=== PATIENT | female | born 1930 | race Caucasian/White ===

== ENCOUNTER 2016-06-23 20:12 | Inpatient (IN) | payer OTHER ==
[~2016-06-23] VITALS: Ht 170.2 cm; Wt 83.1 kg
--- NOTE | ~2016-06-23 | EKG ---
[address] [address] ELECTROCARDIOGRAM REPORT Name: LUIS E KUHN Room #: 310-P ADM IN M.R.#: [id number] Admission: 06/23/16 Attend Phys: Bonilla Sullivan MD Discharge: Date of : 30 Report #: [id number] THIS REPORT FOR: //name// [facility] ED Test Date: 2016-06-23 Test Time: 20:32:45 Pat Name: LUIS E KUHN Department: Room: 310 Gender: F Olap Developer: CHARLEEN : 1930 Requested By: Renetta Manley Order Number: [id number] MD: Shaun Melgar Measurements Intervals [place] Rate: 71 P: 40 VT: 201 QRS: -27 QRSD: 115 T: 56 QT: 431 QTc: 469 Interpretive Statements Sinus rhythm Nonspecific intraventricular conduction delay Borderline low voltage, extremity leads Electronically Signed On 06-27-2016 8:21:25 CDT by Shaun Melgar [email or web address] <ELECTRONICALLY SIGNED> By: Shaun Melgar MD 06/27/16 08 31 31 Shaun Melgar MD /JERROD
--- NOTE | ~2016-06-23 | H ---
[facility] [place] [address] HISTORY AND PHYSICAL Name: LUIS E KUHN Room #: 310-P ADM IN M.R.#: [id number] Admission: 06/23/16 Attend Phys: Bonilla Sulilvan MD Discharge: Date of : 30 Report #: [id number] THIS REPORT FOR: //name// CC: Felix Tolbert MD [facility] Andre Tomas MD DATE OF SERVICE: 06/24/2016 CHIEF COMPLAINT: Abdominal discomfort and bloating. HISTORY OF PRESENT ILLNESS: The patient is an 86-year-old female who presented at my office with complaints of abdominal discomfort as described above. They began approximately 4-5 days prior to this visit and she began taking MiraLax thinking that she was constipation good and she actually had her first bowel movement in that period of time on the date of admission. She denied any fever, chills or sweats. She otherwise felt her normal self. She does note that she has some chronic constipation issues, but only uses her MiraLax on a p.r.n. basis rather than scheduled as recommended. PAST MEDICAL HISTORY: Quite extensive and includes a rheumatoid arthritis, hypertension, left breast cancer, chronic atrial fibrillation, partial thyroidectomy, back surgery. 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 She has had hysterectomy, appendectomy at the same time. Chronic anxiety, hypertension. CURRENT MEDICATIONS: Iron replacement, flecainide, cyclosporine, potassium chloride, hydrochlorothiazide, MiraLax, methotrexate, folic acid, warfarin, levothyroxine, atenolol, amlodipine, irbesartan. ALLERGIES: She is allergic to PENICILLIN. SOCIAL HISTORY: She is to [employer], is a nonsmoker and nondrinker other than occasional social gatherings. FAMILY HISTORY: Noncontributory. REVIEW OF SYSTEMS: She denies any problems with headaches, changes in vision, changes in hearing or difficulty swallowing. She denies any neck pain or back discomfort other than chronic arthritic pains. She notes that there is mild shortness of breath when she takes a deep breath, but she does not have any particular limitations on her activities, otherwise no chest pain. Abdominal pain as described above. She described it as being epigastric and slightly right-sided in the upper quadrant. She has chronic lymphedema in her legs bilaterally and this is unchanged recently. The rest of the 10-point review of [address] [address] HISTORY AND PHYSICAL Name: LUIS E KUHN CAILIN Room #: 310-P [facility] IN ..#: [id number] Admission: 06/23/16 Attend Phys: Bonilla Sullivan MD Discharge: Date of : 30 Report #: [id number] systems was otherwise negative. PHYSICAL EXAMINATION: VITAL SIGNS: In the Emergency Room showed a temperature of 36.7 degrees Celsius with a pulse of 79, blood pressure of 144/83, respirations of 18 and pulse oximetry of 96% on room air. The self-reported weight was 181 pounds. GENERAL: The patient is a very pleasant, moderately overweight, older white female who looks younger than her stated age. HEENT: Extraocular muscles are intact. Oropharynx is moist and pink. No lesions, no exudates. Sinuses are nontender. Hearing is grossly normal bilaterally. NECK: Supple. There is no adenopathy, thyromegaly, JVD, mass or significant bruit. She has good range of motion in her neck, prior back surgery scar is noted. LUNGS: Clear to auscultation bilaterally. CARDIOVASCULAR: Reveals an irregularly irregular, slow rhythm. ABDOMEN: Fairly soft, slightly distended. There is no rebound or guarding despite Slight tenderness in the epigastric and right upper quadrant area. She has soft iliac bruits bilaterally, no pulsatile masses are noted on the abdomen, otherwise. No overt hernias are noted. Prior surgical scar from hysterectomy was noted. Parathyroidectomy scar at the base of her neck is noted. BREASTS: Not performed at the time of admission. EXTREMITIES: Bilateral lower extremity lymphedema, 3+ at least, bilateral total knee replacement scars. Peripheral pulses easily palpated in both feet and both wrists. NEUROLOGIC: No focal deficits of sensation, motor function, deep tendon reflexes. Cranial nerves 2-12 noted on exam today. EKG done in the Emergency Room shows a sinus rhythm despite the clinical exam, elevated at 71 and normal axis without acute ST changes. LABORATORY DATA: Done in the Emergency Room, chemistry shows sodium 134, potassium 4.3, chloride 102, bicarbonate 28, BUN of 12, creatinine 0.7. The anion gap is low at 4. Nonfasting serum glucose is 128. Calcium was 9.3, total bilirubin 0.5, AST of 20, ALT of 17, alkaline phosphatase of 102. Troponin was less than 0.04. The NT-proBNP is 753 and slightly elevated, within normal range at the slab of less than 300 pg/mL. Her total protein is 6.2, albumin of 3.2 and lipase is 115 and normal, protime was 18.8 with an INR of 1.8 on 5 mg warfarin daily. The CBC showed a white count of 9300 with a differential revealing 87% segmented neutrophils, 8% lymphocytes, 1% atypical lymphocytes, 4% monocytes with an ANC of 8100 and 2+ anisocytosis and 2+ macrocytosis noted on the smear with hemoglobin of 11.9 just below the lower limits of normal. Hemogram: Hematocrit of 35.9 and MCV of 95. RDW of 18, the latter being elevated. Platelet count was 252,000. RADIOLOGICAL DATA: The CT scan of the abdomen and pelvis performed at the Emergency Room had the following impression: [facility] [address] [place] [address] HISTORY AND PHYSICAL Name: LUIS E KUHN CAILIN Room #: 310-P ADM IN M.R.#: [id number] Admission: 06/23/16 Attend Phys: Bonilla Sullivan MD Discharge: Date of : 30 Report #: [id number] 1. Various circumferential wall thickening in the right colon causing luminal narrowing and possibly some component of more proximal obstruction. Colon carcinoma should be the diagnosis of exclusion. Recommend endoscopy. Focal colitis is a possibility, but felt to be less likely. 2. Hypodense lesions in the left lobe of the liver, indeterminate appearance, metastatic lesions should be considered. 3. Extensive diverticulitis coli. Urinalysis was reportedly normal. Chest x-ray was reportedly at baseline. ASSESSMENT AND PLAN: 1. Small-bowel obstruction due to mass at the ileocecal junction. It is quite impressive that the patient has developed signs that suggest malignancy given the extensive workup she had in the last year and a half. I have spoken briefly with Dr. Victor M Naik who saw her during that workup and we both feel that her next step is surgical with a surgical consultation with Dr. Andre Espinoza and consider advancing her diet as tolerated when the obstruction clears. IV fluids for hydration for now. 2. Possible liver masses (subcentimeter in size) -- given the diminutive size of these masses, if biopsy needs to be attempted, this may be done intraoperatively. 3. History of left breast cancer without recurrence. We will get a breast exam while she is in the hospital. 4. Chronic atrial fibrillation. She is currently in sinus rhythm with rate control. We will continue anticoagulation, but convert to Lovenox prior to surgery and reverse the Coumadin and then use Lovenox for bridging therapy after surgery. 5. Rheumatoid arthritis. We will need to hold the Methotrexate for now, she is not having much in the way of any active symptoms of rheumatoid arthritis. 6. Hypertension. We will monitor and treat accordingly. 7. Overweight, weight reduction diet and exercise. Though it is a good idea, but we will defer on aggressive weight reduction until after she has recovered from this illness and possibly from surgery. 8. Prior hysterectomy and appendectomy for benign cause. 9. Prior bilateral total knee arthroplasties. 10. Hypothyroidism, status post prior thyroidectomy and parathyroidectomy. 11. Frequent urinary tract infections. 12. Chronic anxiety. 13. Chronic lymphedema in bilateral lower extremities. <ELECTRONICALLY SIGNED> By: Bonilla Sullivan MD 06/27/16 1530 16 4521 Bonilla Sullivan MD /nt
--- NOTE | ~2016-06-23 | S ---
[facility] [place] [address] SURGICAL PATH RPT PROCEDURE Name: MADIHA DAN WARNER Room #: 310-P ADM IN M.R.#: [id number] Admission: 06/23/16 Date of : 30 Discharge: Report #: [id number] Path Case #: [id number] PATHOLOGY REPORT COLLECTION DATE: 06/27/2016 RECEIVED DATE: 06/28/2016 SUBMITTING PHYS: Dr. 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 (SEE COMMENT) COMMENT: The case is co-reviewed with Dr. Krysten Hoyt. Please refer to the right hemicolectomy specimen for additional information and microsatellite instability testing ([id number]). (CLW:rodrigo; d/t: 06/29/2016) PATHOLOGIST: Sarah Mondragon M.D. REPORT ELECTRONICALLY SIGNED BY: Sarah Mondragon M.D. DATE/TIME: 06/29/2016 13:46 * * * * * * * * * * * * GROSS PATHOLOGY: Received in formalin labeled "Madiha Dan, BX of hepatic flexure," are more than 10 segments of moon soft tissue measuring 1.3 x 0.6 x 0.2 cm in aggregate dimensions and ranging from less than 0.1 to 0.5 cm in maximum dimension. The specimen is submitted entirely in cassette A1. (KINA; 06/28/2016) CLINICAL HISTORY: Rule out ischemia, malignancy INITIAL CPT CODE(S): A; 74885 Professional services performed by [facility] at [facility] [address] , [place] [address] [facility] [address] [place] [address] SURGICAL PATH RPT PROCEDURE Name: MADIHA DANSA Room #: 310-P ADM IN M.R.#: [id number] Admission: 06/23/16 Date of : 30 Discharge: Report #: [id number] Path Case #: [id number] Technical services performed by [facility] at [address] [place] [address], [facility] [address] [address]. [place] [address] PHONE: [phone] DIRECTOR: Burton Farrar M.D. * * * END OF REPORT * * *
--- NOTE | ~2016-06-23 | 2DMMODE ---
[facility] [place] [address] 2 D/M-MODE ECHOCARDIOGRAM Name: LUIS E KUHN WILLOWBROOK Room #: 310-P ADM IN M.R.#: [id number] Admission: 06/23/16 Attend Phys: Bonilla Sullivan MD Discharge: Date of : 30 Date of Service: 06/25/16 1130 Report #: [id number] THIS REPORT FOR: //name// APPROVED REPORT Study performed: 06/25/2016 09:27:57 EXAM: Comprehensive 2D, Doppler, and color-flow Echocardiogram Patient Location: Bedside Room #: 310 Blood Pressure: 156/61 mmHg HR: 56 bpm Other Information Study Quality: Good Indications Atrial Fibrillation 2D Dimensions RVDd: 34.81 mm LVEF(%): 53.82 (>50%) IVSd: 9.44 (7-11mm) LVOT Diam: 19.03 (18-24mm) LVDd: 57.46 mm PWd: 11.18 (7-11mm) Ascending Ao: 29.10 (22-36mm) LVDs: 41.25 (25-40mm) Aortic Root: 31.09 mm IVC: 16.00 mm Martinez's LVEF: 53.82 % Volumes Left Atrial Volume (Systole) Single Plane 4CH: 39.88 mL Single Plane 2CH: 46.81 mL LA ESV Index: 24.00 mL/m2 Aortic Valve AoV Peak Tom.: 1.40 m/s AO Peak Gr.: 7.79 mmHg LVOT Max P.58 mmHg LVOT Max V: 1.07 m/s ISABELL Vmax: 2.18 cm2 Mitral Valve E/A Ratio: 0.8 MV Decel. Time: 246.69 ms [facility] [place] [place] [address] 2 D/M-MODE ECHOCARDIOGRAM Name: LUIS E KUHN WILLOWBROOK Room #: 310-P [facility] IN ..#: [id number] Admission: 06/23/16 Attend Phys: Bonilla Sullivan MD Discharge: Date of : 30 Date of Service: 06/25/16 1130 Report #: [id number] E Max Tom.: 0.84 m/s MV A Tom.: 1.11 m/s MV PHT: 71.54 ms IVRT: 143.02 ms Pulmonary Valve PV Peak Tom.: 1.07 m/s PV Peak Gr.: 4.57 mmHg Pulmonary Vein P Vein S: 50.1 m/s P Vein A: 28.58 m/s P Vein D: 26.3 m/s P Vein A Dur.: 115.3 msec Tricuspid Valve TR Peak Tom.: 2.27 m/s RAP Estimate: 5.00 mmHg TR Peak Gr.: 20.63 mmHg Left Ventricle Left ventricle is at the upper limits of normal. There is normal LV segmental wall motion. There is normal left ventricular wall thickness. The left ventricular systolic function is normal. The left ventricular ejection fraction is within the normal range. LVEF is 55-60%. Grade I - abnormal relaxation pattern. Right Ventricle The right ventricle is normal size. The right ventricular systolic function is normal. Atria The left atrium size is normal. The right atrium size is normal. Aortic Valve The aortic valve is normal in structure. Aortic valve is calcified. No aortic regurgitation is present. There is no aortic valvular stenosis. Mitral Valve The mitral valve is normal in structure. Mild mitral regurgitation. No evidence of mitral valve stenosis. Tricuspid Valve The tricuspid valve is normal in structure. There is trace tricuspid regurgitation. The right atrial pressure is estimated at 5 mmHg. There is no pulmonary hypertension. The estimated PAP was [address] [address] 2 D/M-MODE ECHOCARDIOGRAM Name: LUIS E KUHN CAILNI Room #: 310-P [facility] IN [facility]#: [id number] Admission: 06/23/16 Attend Phys: Bonilla Sullivan MD Discharge: Date of : 30 Date of Service: 06/25/16 1130 Report #: [id number] Pulmonic Valve The pulmonary valve is normal in structure. There is no pulmonic valvular regurgitation. Great Vessels The aortic root is normal in size. IVC is normal in size and collapses >50% with inspiration. Pericardium There is no pericardial effusion. <Conclusion> Left ventricle is at the upper limits of normal. The left ventricular systolic function is normal. Grade I - abnormal relaxation pattern. The right ventricle is normal size. The left atrium size is normal. There is no aortic valvular stenosis. Mild mitral regurgitation. There is trace tricuspid regurgitation. The right atrial pressure is estimated at 5 mmHg. There is no pulmonary hypertension. The estimated PAP was 26 mmHg. <ELECTRONICALLY SIGNED> By: Jose Metz MD 06/25/16 1130 1130 1130 Jose Metz MD /INF
--- NOTE | ~2016-06-23 | S ---
[facility] [address] [place] [address] SURGICAL PATH RPT PROCEDURE Name: MADIHA DAN Room #: 310-P ADM IN M.R.#: [id number] Admission: 06/23/16 Date of : 30 Discharge: Report #: [id number] Path Case #: [id number] PATHOLOGY REPORT COLLECTION DATE: 06/28/2016 RECEIVED DATE: 06/28/2016 SUBMITTING PHYS: Dr. Andre Espinoza OTHER PHYS: Dr.Mark Sullivan SPECIMEN(S) RECEIVED: A.Right hemicolectomy B.Margin edge of right hemicolectomy C.Liver biopsy * * * * * * * * * * * * FINAL DIAGNOSIS: A. Terminal ileum and large intestine, right hemicolectomy: - INVASIVE MODERATELY DIFFERENTIATED COLONIC ADENOCARCINOMA MEASURING 7.0 CM WITH GROSS EVIDENCE OF PERFORATION AND TUMOR PRESENT WITH CAUTERY. - Mucosal margins of resection showing no evidence of dysplasia or malignancy. - FOUR LYMPH NODES WITH METASTATIC ADENOCARCINOMA OF TWENTY SAMPLED (4/20). - 18 cm of omentum with congestion and chronic inflammation; negative for malignancy. B. Margin edge of right hemicolectomy: - Large intestine and small bowel mucosa with no diagnostic abnormalities. C. Liver, needle core biopsy: - METASTATIC ADENOCARCINOMA, MORPHOLOGICALLY SIMILAR TO THE COLONIC PRIMARY. SYNOPTIC CANCER STAGING REPORT SPECIMEN Specimen: Terminal ileum Cecum Ascending colon Procedure: Right hemicolectomy TUMOR Primary Tumor Site: Hepatic flexure Histologic Type: Adenocarcinoma Histologic Grade: Low-grade (well differentiated to moderately differentiated) Tumor Size: Greatest dimension (cm): 7.0 [facility] [address] [place] [address] SURGICAL PATH RPT PROCEDURE Name: MADIHA DAN RIO NIDO Room #: 310-P [facility] IN [facility]#: [id number] Admission: 06/23/16 Date of : 30 Discharge: Report #: [id number] Path Case #: [id number] Additional Dimension (cm): 5.0 Tumor Deposits: Present Number of Deposits: Specify: 1 Tumor Extent Site(s) of Direct Extent of Tumor: None identified Microscopic Tumor Extension: Tumor is adherent to other organs or structures: intraabdominal; cauterized tumor at mesenteric margin on large intestine Macroscopic Tumor Perforation: Present Accessory Tumor Findings Lymph-Vascular Invasion: Present Small vessel lymph-vascular invasion Perineural Invasion: Present Type of Polyp in Which Invasive Carcinoma Arose: Tubular adenoma MARGINS For Resection Specimens Only Proximal Margin: Uninvolved by invasive carcinoma Distance of Tumor from Margin: Specify (cm): 13 Distal Margin: Uninvolved by invasive carcinoma Distance of Tumor from Margin (required only for rectal tumors): Specify (cm): 9 Circumferential (Radial) Margin: Involved by invasive carcinoma (tumor present 0-1 mm from margin) Mesenteric Margin: Involved by invasive carcinoma (tumor present 0-1 mm from margin) LYMPH NODES Regional Lymph Nodes: Number of Lymph Nodes Examined: Specify number: 20 Number of Lymph Nodes Involved: Specify number: 4 STAGE (PTNM) Primary Tumor (pT): pT4b: Tumor directly invades or is adherent to other organs or structures Regional Lymph Nodes (pN): pN2a: Metastasis in 4 to 6 regional lymph nodes Distant Metastasis (pM): pM1a: Metastasis to single organ or site (e.g., liver, lung, ovary, nonregional lymph node) COMMENT: Obstetrics Scrub Nurse slides (A3, A4, and C1) were co-reviewed by Dr. Sarah Mondragon, who concurs with my diagnosis. Per [facility] Cancer Committee protocol, mismatch repair (MMR) protein immunohistochemical staining was performed. Reason for testing: To evaluate [place] [address] SURGICAL PATH RPT PROCEDURE Name: HATTIEMADIHA RIO NIDO Room #: 310-P [facility] IN M.R.#: [id number] Admission: 06/23/16 Date of : 30 Discharge: Report #: [id number] Path Case #: [id number] mismatch repair proteins. Method: Immunohistochemical staining for the presence or absence of protein expression of one or more of the following MMR protein markers: MLH1, MSH2, MSH6 and PMS2 on block A4. Tumor type: Invasive adenocarcinoma Results: MLH1 - Preserved MSH2 - Preserved MSH6 - Preserved PMS2 - Preserved Mismatch Repair Status: MMR Proficient (MMR-P) Interpretation: (MMR-P) All four MMR proteins are preserved within tumor cells. This suggests the presence of normal DNA mismatch repair function within the tumor and an observable defect in mismatch repair is not identified. The likelihood that this patient has an inherited germline mutation syndrome due to defective mismatch repair is reduced but not totally eliminated. If the patient has a strong personal or family history of HPNCC/Wilson syndrome related cancers (colorectal, endometrial, gastric, ovarian, pancreatic, ureter/renal pelvis, biliary tract, brain, small bowel and [place]-Silvio syndrome), consider MSI testing by PCR methodology. Suggest clinical correlation and follow up. These test results are designed for screening purposes only and are useful tools in identifying cancer patients that are more likely to have Wilson Syndrome related diagnoses. Tests should be interpreted in the context of clinical findings, family history and laboratory data. Abnormal IHC results for MMR protein expression are not considered diagnostic for Wilson Syndrome. (IUV:mgr; d/t: 06/29/16) PATHOLOGIST: Krysten Hoyt M.D. REPORT ELECTRONICALLY SIGNED BY: Krysten Hoyt M.D. DATE/TIME: 06/30/2016 11:19 * * * * * * * * * * * * GROSS PATHOLOGY: A. The specimen is received fresh from the OR labeled with the patient's name, and "right hemicolectomy" consists of a 24.4 cm segment of large intestine with attached 4.0 x 3.0 cm of ileum. The appendix is not obvious. Approximately 9 cm from the distal margin is a perforated area which is inked black. There appears to be a circumferential mass at this focus with significant serosal fat perforation. The perforated area measures 1.0 x 2.0 cm. The specimen is opened to show a 7.0 x 5.0 cm ulcerated circumferential mass approximately 9 cm from the distal margin and 13 cm from the [address] [address] SURGICAL PATH RPT PROCEDURE Name: MADIHA DAN Room #: 310-P ADM IN M.R.#: [id number] Admission: 06/23/16 Date of : 30 Discharge: Report #: [id number] Path Case #: [id number] proximal margin. No additional mass lesions are identified. In addition, to the mesenteric fat, there is 18 x 4 cm of omentum attached. The omentum is serially sectioned and shows no nodules or mass lesions are identified. Sections are submitted as follows: A1 - Proximal and distal margin (claims customer service representative section) A2-A5 - Obstetrics Scrub Nurse sections of the mass A6-A7 - Possible lymph nodes A8- A9 - Lymph nodes surrounding the tumor in the mesenteric fat A10 - Obstetrics Scrub Nurse sections of omentum (IUV/db; 06/28/2016) After initial microscopic examination, the specimen is re-examined. Further sectioning of the mesenteric fat reveals additional possible lymph nodes ranging in size from 0.2 to 0.3 cm in maximum dimensions. The lymph nodes are submitted intact in cassette A11. (CAA; 06/29/2016) B. The specimen is received in formalin labeled "Madiha Dan, margin edge of right hemicolectomy". Received is a circular segment of pink-moon mucosa with a suture present measuring 4.3 x 1.5 x 1.1 cm in greatest dimensions. Further opening of the specimen reveals pink-moon mucosa with normal architectural folds. No distinct nodules or lesions are noted grossly. The specimen is fitted representatively in cassettes B1 and B2. C. Received in formalin labeled "Madiha Dan, liver biopsy," are four distinct needle cores of white-moon to orange red-moon soft tissue ranging from 0.3 to 1.8 cm in length, which are submitted entirely in cassette C1. (CAA; 06/28/2016) CLINICAL HISTORY: Bowel obstruction INITIAL CPT CODE(S): A; 69959, 00783, 90970, 97268, 82321, 92360 B; 90440 C; 69328 Professional services performed by [facility] at [facility] [address] [place] [address] Technical services performed by [facility] at [address] [place] [address]. [facility] [address] [place] [address] SURGICAL PATH RPT PROCEDURE Name: MADIHA DAN CAILIN Room #: 310-P ADM IN M.R.#: [id number] Admission: 06/23/16 Date of : 30 Discharge: Report #: [id number] Path Case #: [id number] PHONE: [phone] DIRECTOR: Burton Farrar M.D. * * * END OF REPORT * * *
--- NOTE | ~2016-06-23 | EKG ---
[place] [address] [facility] [address] [place] [address] ELECTROCARDIOGRAM REPORT Name: LUIS E KUHN Room #: 450-P ADM IN M.R.#: [id number] Admission: 06/23/16 Attend Phys: Bonilla Sullivan MD Discharge: Date of : 30 Report #: [id number] THIS REPORT FOR: //name// [facility] Test Date: 2016-07-01 Test Time: 13:02:59 Pat Name: LUIS E KUHN Department: Room: 450 Gender: F [employer] Supervisor: abelardo : 1930 Requested By: Felix Tolbert Order Number: [id number] MD: Felix Tolbert Measurements Intervals Issue Rate: 136 P: AR: QRS: 35 QRSD: 93 T: 191 QT: 343 QTc: 517 Interpretive Statements Atrial fibrillation Low voltage, extremity leads Repolarization abnormality, prob rate related Prolonged QT interval Compared to ECG 06/23/2016 20:32:45 Atrial fibrillation has replaced sinus rhythm Electronically Signed On 07-02-2016 11:28:09 CDT by Felix Tolbert [email or web address] <ELECTRONICALLY SIGNED> By: Felix Tolbert MD, [facility] 07/02/16 1128 1302 1302 Felix Tolbert MD, [facility] /EPI
--- NOTE | ~2016-06-23 | O ---
[facility] [place] [address] OPERATIVE REPORT Name: LUIS E KUHN Room #: 450-P ADM IN M.R.#: [id number] Admission: 06/23/16 Attend Phys: Bonilla Sullivan MD Discharge: Date of : 30 Report #: [id number] THIS REPORT FOR: //name// CC: Bonilla Sullivan DATE OF SERVICE: 06/28/2016 DATE OF ADMISSION: 06/23/2016. DATE OF OPERATION: 06/28/2016 DATE OF DICTATION: 07/04/2016 PREOPERATIVE DIAGNOSIS: Right ascending colon adenocarcinoma with possible liver metastases. POSTOPERATIVE DIAGNOSIS: Right ascending colon, hepatic flexure adenocarcinoma of the colon with hepatic metastases. OPERATIVE PROCEDURE: Laparoscopic converted to open right hemicolectomy with needle biopsy of the liver (2) also application of Prevena negative wound fresher suction device. SURGEON: Andre Espinoza MD MIS DIRECTOR: Kiley Cruz APRN. INDICATIONS: This 86-year-old lady has presented to her primary care physician with symptoms suggestive of possible partial bowel obstruction. Her symptoms are crampy abdominal pain with some distention. The patient has noted no change in her gastrointestinal function except for the cramping abdominal pain. After admission, the patient has had ongoing bowel preparation. The patient also has been on Coumadin therapy for previous atrial fibrillation, The Coumadin therapy has been stopped and the patient's protime INR has returned to normal over a period of 48 hours. The patient has undergone colonoscopy, which delineated a nearly circumferential partially obstructing lesion in the ascending colon near the hepatic flexure. Biopsies were taken. OPERATIVE PROCEDURE: The patient had a thorough discussion of the procedure, benefits and risks. She gave informed consent to proceed. She had a previous mechanical and antibiotic bowel preparation. She was given Mefoxin IV at the time of operation. After satisfactory induction of general endotracheal anesthesia, the patient's entire abdomen was prepped and draped in the usual sterile procedure with DuraPrep solution. After draping was completed, an appropriate timeout was then performed. A 0.5% plain Naropin was utilized at all trocar sites. Initially, an infraumbilical incision was performed and an [facility] [address] [place] [address] OPERATIVE REPORT Name: LUIS E KUHN COOTER Room #: 450-P ADM IN M.R.#: [id number] Admission: 06/23/16 Attend Phys: Bonilla Sullivan MD Discharge: Date of : 30 Report #: [id number] open cutdown was performed. The Gigi trocar was placed. Pneumoperitoneum was established. The right colon was visualized. This was densely adherent to the inferior aspect of the gallbladder. The liver did not demonstrate any obvious espinoza moon masses visualized by laparoscopy. The left upper quadrant was unremarkable. The identification of the terminal ileum, ileocecal valve was also demonstrated. Some of the small bowel loops were somewhat dilated and distended and an intraoperative decision was made to perform an open procedure and conversion to an open midline laparotomy was then performed. Upon exploration of the abdomen, the firm large mass was palpable just below the hepatic flexure, just proximal to the hepatic flexure. Palpation of the liver demonstrated a 2-3 cm mass in the medial segment of the left lobe of the liver. There was a larger 3 cm mass in the lateral lobe of the left lateral segment of the left lobe. Attention was turned to the medial segment lesion and needle biopsy kit was utilized to perform 2 biopsies of this segment. These fragments were submitted for histologic evaluation. Attention was turned to the region of the ileocecal valve and 8 cm proximal to the ileocecal valve was chosen as a transsection point, the window was made in the mesentery. The EBONY stapling device was utilized to transect the ileum. The peritoneal reflection on the lateral aspect of the cecum was then opened and for along the peritoneal reflection inferior to the hepatic flexure was the firm mass, which was clearly palpable and evident. There was dimpling of the serosal surface; posteriorly the mass had perforated into the tissue behind the colon. This mass was rolled away from the posterior tissue leaving a small 1.5 cm area where there was residual tumor present directly over the right ureter. This area was identified with 4 clips at the 12, 3, 6, and 9 position. There was a small amount of rough residual tumor present. The remainder of the hepatic flexure was mobilized medially. A place in the mesocolon was chosen just to the right side of the middle colic vessels. A window was made in the mesocolon. The colon was transected utilizing the EBONY stapling device. The mesocolon was transected and controlled with the LigaSure device. Larger vessels were stick tied with 3-0 PDS suture. The duodenum was well visualized and maintain in its normal position. The entire specimen was transected and given to the pathologist in a fresh state, evaluation was performed. The ileocolic vessels were transected and ligated with 2-0 PDS sutures as well as the LigaSure device. After the complete resection, the terminal ileum and the colon were approximated. The ileocolotomy anastomosis was performed with a EBONY stapling device. The ileocolotomy was then controlled with Allis clamps and the TA 60 stapling device was utilized to close the ileocolotomy. The mesenteric rent between the small bowel and the mesocolon was then approximated with running 2-0 PDS suture. Irrigation was utilized with water. Evacuation of all irrigating contents was accomplished. There was no spillage of bowel contents performing of the anastomosis. Hemostasis was complete. Attention was turned to the biopsy site and the liver. Surgicel was applied to the surface of the liver. Hemostasis was complete. A final inspection was performed. There was demonstrated sigmoid diverticulosis present. No evidence of diverticulitis was present. The small residual region of residual tumor overlying the right ureter was again [facility] [address] [place] [address] OPERATIVE REPORT Name: LUIS E KUHN COOTER Room #: 450[facility] IN .R.#: [id number] Admission: 06/23/16 Attend Phys: Bonilla Sullivan MD Discharge: Date of : 30 Report #: [id number] inspected. The clips were intact and in place. All sponge and needle counts were correct. The fascia was then approximated with running looped #1 PDS, one suture was run from the superior aspect of the incision and one suture was run from the inferior aspect, each was tied individually and then the tails were ligated and tied together. Irrigation of subcutaneous tissues was performed. The skin margins were stapled. A Prevena device was then applied to the skin. Estimated blood loss was approximately 100 mL. The patient tolerated the procedure well and she returned directly to the recovery room in stable and satisfactory condition. <ELECTRONICALLY SIGNED> By: Andre Espinoza MD, FACS 07/05/16 0858 1816 29 Andre Espinoza MD, FACS /nt
--- NOTE | ~2016-06-23 | HC ---
[facility] [place] [address] CONSULTATION Name: LUIS E KUHN Room #: 450-P ADM IN M.R.#: [id number] Admission: 06/23/16 Attend Phys: Bonilla Sullivan MD Discharge: Date of : 30 Report #: [id number] THIS REPORT FOR: //name// CC: Bonilla Sullivan DATE OF SERVICE: 06/24/2016 DATE OF DICTATION: 07/05/2016 HISTORY OF PRESENT ILLNESS: I have been asked to evaluate this 86-year-old lady, who presented to her primary care physician with abdominal discomfort and cramping abdominal pain. This began approximately 4 to 5 days prior to evaluation. She has had her first bowel movement a few days at the time of admission. She denied fever, chills or sweats. She is taking some MiraLax that seems to help in the recent days. PAST MEDICAL HISTORY: Consistent with rheumatoid arthritis, hypertension, left breast CA, chronic atrial fibrillation, partial hemorrhoidectomy and back surgery. She has small internal carotid artery aneurysm. PAST SURGICAL HISTORY: Hysterectomy, appendectomy simultaneously. CURRENT MEDICATIONS: Iron replacement, cyclosporine, potassium chloride, hydrochlorothiazide, MiraLax, methotrexate, folic acid, Coumadin therapy, levothyroxine, atenolol, amlodipine and irbesartan. ALLERGIES: PENICILLIN. SOCIAL HISTORY: She is . Nonsmoker. . Occasional alcohol on social event. FAMILY HISTORY: Unknown and not obtainable, noncontributory. REVIEW OF SYSTEMS: CONSTITUTIONAL: She has chronic headaches and arthritis changes. EXTREMITIES: She also has chronic lymphedema in bilateral lower extremities. She denies other symptoms. GASTROINTESTINAL: Recent bloating, cramping and some mild abdominal distention that was relieved significantly. Remainder of 10 point this review of systems essentially noncontributory. PHYSICAL EXAMINATION: GENERAL: Reveals an alert, cooperative lady oriented, afebrile. is at the bedside. HEENT: Pupils equal, round, react. No scleral icterus. NECK: Supple, no bruits. [facility] [address] [place] [address] CONSULTATION Name: LUIS E KUHN LEDBETTER Room #: 450-P ADM IN M.R.#: [id number] Admission: 06/23/16 Attend Phys: Bonilla Sullivan MD Discharge: Date of : 30 Report #: [id number] LUNGS: Clear to bases. CARDIOVASCULAR: Regular rate and rhythm. ABDOMEN: Obese. She has some mild tenderness in right upper quadrant in the right flank region. No guarding or rebound. RECTAL: Not performed. EXTREMITIES: Bilateral lymphedema of the lower extremities. REVIEW OF LABORATORY DATA: Demonstrates liver function tests within normal limits. Remainder of laboratory with mild elevation of the liver function tests. CT scan is consistent with mass in the hepatic flexure ascending colon consistent with possible neoplasm. DIAGNOSTIC IMPRESSION: Symptom suggesting partial bowel obstruction and a mass by CT scan. I would recommend proceeding with level and repeat colonoscopy and a gentle mechanical bowel prep over the weekend. There will need to be correction of her INR and Protime, which is prolonged secondary to Coumadin therapy at this time. Thank you for allowing us to participate in her care and we will proceed with the mechanical bowel preparation, possible colonoscopy on Monday when there is resolution of the protime to normal and then the patient will require a right hemicolectomy. Thank you for allowing us to participate in her care. <ELECTRONICALLY SIGNED> By: Andre Espinoza MD, FACS 07/06/16 1118 1707 0417 Andre Espinoza MD, FACS /nt
--- NOTE | ~2016-06-23 | HC ---
[facility] [address] CONSULTATION Name: LUIS E KUHN Room #: 310-P ADM IN M.R.#: [id number] Admission: 06/23/16 Attend Phys: Bonilla Sullivan MD Discharge: Date of : 30 Report #: [id number] THIS REPORT FOR: //name// CC: Bonilla Sullivan DATE OF SERVICE: 06/25/2016 INDICATION: AFib. HISTORY OF PRESENT ILLNESS: This is a pleasant 86-year-old female who was admitted with chronic abdominal discomfort and constipation. Workup revealed a small-bowel obstruction due to an ileocecal mass. We are asked to evaluate the patient as she has a history of permanent atrial fibrillation. She is maintaining sinus rhythm with antiarrhythmic therapy. She is also on anticoagulation therapy with warfarin. The patient is followed by Dr. Felix Tolbert in the ____ office. PAST MEDICAL HISTORY: Permanent chronic atrial fibrillation, maintained in sinus rhythm. Echo from 2015 reveals normal LV systolic function. Nuclear stress test from 2015 is nonischemic. History of hypertension. Rheumatoid arthritis, left breast cancer. TIA. MEDICATIONS: Include flecainide 100 mg, warfarin as directed, hydrochlorothiazide, atenolol 50 mg, amlodipine 5 mg, Avapro, levothyroxine and folic acid. ALLERGIES: PENICILLIN. SOCIAL HISTORY: Negative for tobacco use. FAMILY HISTORY: Negative for premature CAD. REVIEW OF SYSTEMS: A full 10-point review of systems performed. Only the pertinent positives and negatives are described in the HPI. PHYSICAL EXAMINATION: VITAL SIGNS: Blood pressure is 150/80, heart rate is 90 beats per minute. GENERAL APPEARANCE: This is an elderly appearing female in no acute respiratory distress. HEAD AND EYES: Normocephalic. Sclerae are anicteric. ENT: Oral mucosa moist. NECK: Supple. LUNGS: Clear to auscultation. CARDIAC: Regular rate and rhythm, S1, S2 positive. ABDOMEN: Soft. EXTREMITIES: No major joint deformities. Chronic lymphedema. [facility] [address] [place] [address] CONSULTATION Name: LUIS E KUHN HAWTHORNE Room #: 310-P [facility] IN M.R.#: [id number] Admission: 06/23/16 Attend Phys: Bonilla Sullivan MD Discharge: Date of : 30 Report #: [id number] ECG reveals sinus rhythm, normal QT interval. LABORATORY VALUES: White count is 9.3, hemoglobin 11.9. Sodium is 134, creatinine is 0.7. Troponin is negative. ASSESSMENT AND PLAN: 1. Small-bowel obstruction due to mass at the ileocecal junction. Continue GI and surgical workup. 2. Paroxysmal atrial fibrillation, the rhythm remains sinus. Continue with flecainide and the beta mariana. Warfarin is on hold. She does not necessarily require bridging with heparin at this point. 3. Hypertension, continue with medications. 4. Rheumatoid arthritis, methotrexate is on hold. 5. Gastroesophageal reflux disease. 6. Chronic lymphedema. Thank you for allowing me to participate in the care of your patient. <ELECTRONICALLY SIGNED> By: Jose Metz MD 06/26/16 0804 0912 2226 Jose Metz MD /nt
[~2016-06-23 20:12] MED LIST: ALTACE10 M1 PO; BYSTOLIC 5 MG5 M1 PO; BYSTOLIC10 MG PO; CALCIUM PO; COUMADIN 2.5MG2.5 M1 PO; COUMADIN 5 MG TA5 M1 PO; FLECAINIDE ACET50 M1 PO; FOLIC ACID1 MG PO; FUROSEMIDE 40 M40 MG PO; HYDROCHLOROTH12.5 M1 PO; KEFLEX500 MG PO; KLOR-CON 1010 MEQ PO; LEVOTHYROXINE0.05 MG PO; LUMIGAN2.5 M1 OP; MAGNES PO; METHOTREXATE 22.5 MG; NORCO 5-325 TA1 EACH PO; NORVASC10 MG PO; VITAMIN D-32000 UNIT; VITAMINC500 PO; ZINC CHELATE15 MG PO
[2016-06-23 20:25] VITALS: BP 144/83
[2016-06-23] MEDS ORDERED: NORVASC5 MG PO (21:18)
[2016-06-23] MEDS ORDERED: IRBESARTAN300 MG PO (21:18)
[2016-06-23] MEDS ORDERED: TENORMIN25 MG PO (21:18)
[2016-06-23] MEDS ORDERED: METHOTREXATE 22.5 MG PO (21:19)
[2016-06-23] MEDS ORDERED: [UNRECOGNIZED DRUG - OTHER] OPHTHALMIC (21:19)
[2016-06-23 21:30] LABS: HEMATOCRIT 35.9 % (37.0-47.0); HEMOGLOBIN 11.9 gm/dL (12.0-15.0); MCH 31.4 pg (26.0-34.0); MCHC 33.1 g/dL (28.0-37.0); PLATELET COUNT 252 thou/uL (150-400); RBC 3.78 mil/uL (4.20-5.00); WBC 9.3 thou/uL (4.0-11.0)
[2016-06-23 21:32] LABS: MANUAL DIFF YES
[2016-06-23 21:42] LABS: ANION GAP 4 mmol/L (7-16); BUN 12 mg/dL (7-18); CALCIUM 9.3 mg/dL (8.5-10.1); CHLORIDE 102 mmol/L (98-107); CO2 28 mmol/L (21-32); CREATININE 0.7 mg/dL (0.6-1.0); GLUCOSE 128 mg/dL (74-106); POTASSIUM 4.3 mmol/L (3.5-5.1); SODIUM 134 mmol/L (136-145)
[2016-06-23 21:44] LABS: INR 1.8; PROTIME 18.8 Seconds (9.3-11.4)
[2016-06-23 21:48] LABS: ALBUMIN 3.2 g/dL (3.4-5.0); ALKALINE PHOSPHATASE 102 U/L (46-116); SGOT 20 U/L (15-37); SGPT 17 U/L (30-65); TOTAL BILIRUBIN 0.5 mg/dL (<0.1-1.0); TOTAL PROTEIN 6.2 g/dL (6.4-8.2); TROPONIN-I < 0.04 ng/mL (<0.04-0.07)
[2016-06-23 21:54] LABS: ABSOLUTE NEUTROPHILS 8.1 thou/uL (1.4-8.2); ANISOCYTOSIS 2+; ATYPICAL LYMPHS 1 %; TOTAL CELL COUNT 100
[2016-06-23 21:55] LABS: MACROCYTES 2+
[2016-06-24 00:43] VITALS: BP 172/73
[2016-06-24 00:55] VITALS: BP 165/78
[2016-06-24] MEDS ORDERED: VITRON-C TABLE1 EAC1 PO (04:51)
[2016-06-24] MEDS ORDERED: FLECAINIDE ACET50 M1 PO (04:54)
[2016-06-24] MEDS ORDERED: RESTASIS1 EACH OPHTHALMIC (05:02)
[2016-06-24] MEDS ORDERED: KLOR-CON 1010 MEQ PO (05:03)
[2016-06-24] MEDS ORDERED: HYDROCHLOROTH12.5 M1 PO (05:04)
[2016-06-24] MEDS ORDERED: MIRALAX17 GM PO (05:06)
[2016-06-24 05:28] VITALS: BP 139/71
[2016-06-24 08:40] VITALS: BP 167/64
[2016-06-24 15:32] VITALS: BP 163/64
[2016-06-24 20:45] VITALS: BP 140/71
[2016-06-25 04:35] VITALS: BP 156/61
[2016-06-25 05:02] LABS: URINE BILIRUBIN NEGATIVE (Negative); URINE BLOOD NEGATIVE (Negative); URINE COLOR YELLOW; URINE GLUCOSE-RANDOM* NEGATIVE (Negative); URINE KETONES NEGATIVE (Negative); URINE LEUKOCYTES-REFLEX NEGATIVE (Negative); URINE PROTEIN (DIPSTICK) NEGATIVE (Negative); URINE UROBILINOGEN 0.2 E.U./dl (0.2-1.0)
[2016-06-25 06:26] LABS: INR 1.6; PROTIME 16.3 Seconds (9.3-11.4)
[2016-06-25 09:14] VITALS: BP 161/55
[2016-06-25 17:53] VITALS: BP 177/64
[2016-06-25 20:10] VITALS: BP 165/60
[2016-06-26 04:30] VITALS: BP 179/74
[2016-06-26 05:54] LABS: HEMATOCRIT 31.2 % (37.0-47.0); HEMOGLOBIN 10.5 gm/dL (12.0-15.0); MCHC 33.5 g/dL (28.0-37.0); MCV 95.5 fL (80.0-100.0); RBC 3.27 mil/uL (4.20-5.00); WBC 6.2 thou/uL (4.0-11.0)
[2016-06-26 06:06] LABS: INR 1.2; PROTIME 12.1 Seconds (9.3-11.4)
[2016-06-26 06:18] LABS: ALBUMIN 2.9 g/dL (3.4-5.0); CALCIUM 8.7 mg/dL (8.5-10.1); CREATININE 0.5 mg/dL (0.6-1.0); TOTAL BILIRUBIN 0.4 mg/dL (<0.1-1.0); TOTAL PROTEIN 5.6 g/dL (6.4-8.2)
[2016-06-26 15:55] VITALS: BP 178/65
[2016-06-26 19:51] VITALS: BP 172/63
[2016-06-27 04:18] VITALS: BP 151/52
[2016-06-27 06:25] LABS: HEMATOCRIT 32.2 % (37.0-47.0); HEMOGLOBIN 10.9 gm/dL (12.0-15.0); MCH 32.2 pg (26.0-34.0); MCHC 33.8 g/dL (28.0-37.0); MCV 95.1 fL (80.0-100.0); RBC 3.38 mil/uL (4.20-5.00); RDW 17.7 % (10.5-14.5); WBC 6.3 thou/uL (4.0-11.0)
[2016-06-27 06:35] LABS: INR 1.1; PROTIME 11.2 Seconds (9.3-11.4)
[2016-06-27 06:44] LABS: CREATININE 0.5 mg/dL (0.6-1.0); POTASSIUM 3.9 mmol/L (3.5-5.1)
[2016-06-27 08:51] VITALS: BP 175/84
[2016-06-27 13:04] VITALS: BP 172/65
[2016-06-27 19:35] VITALS: BP 157/93
[2016-06-28] VITALS (8 sets, daily range): BP systolic 122–169; BP diastolic 57–80
[2016-06-28 06:28] LABS: HEMATOCRIT 30.6 % (37.0-47.0); HEMOGLOBIN 10.3 gm/dL (12.0-15.0); MCHC 33.7 g/dL (28.0-37.0); MCV 95.2 fL (80.0-100.0); RBC 3.21 mil/uL (4.20-5.00); RDW 17.5 % (10.5-14.5); WBC 6.4 thou/uL (4.0-11.0)
[2016-06-28 06:41] LABS: INR 1.1; PROTIME 11.2 Seconds (9.3-11.4)
[2016-06-28 06:46] LABS: CALCIUM 9.1 mg/dL (8.5-10.1); CREATININE 0.5 mg/dL (0.6-1.0); POTASSIUM 3.5 mmol/L (3.5-5.1)
[2016-06-29 04:00] VITALS: BP 152/62
[2016-06-29 06:17] LABS: HEMATOCRIT 37.4 % (37.0-47.0); HEMOGLOBIN 12.1 gm/dL (12.0-15.0); MCH 31.2 pg (26.0-34.0); MCHC 32.4 g/dL (28.0-37.0); MCV 96.3 fL (80.0-100.0); RBC 3.89 mil/uL (4.20-5.00); RDW 17.3 % (10.5-14.5)
[2016-06-29 06:28] LABS: CALCIUM 8.9 mg/dL (8.5-10.1); CREATININE 0.6 mg/dL (0.6-1.0); POTASSIUM 3.5 mmol/L (3.5-5.1)
[2016-06-29 08:39] VITALS: BP 155/56
[2016-06-29 16:19] VITALS: BP 126/76; BP 158/63
[2016-06-29 19:35] VITALS: BP 146/87
[2016-06-30 04:54] VITALS: BP 152/74
[2016-06-30 05:15] LABS: HEMATOCRIT 29.9 % (37.0-47.0); MCH 31.8 pg (26.0-34.0); MCHC 33.7 g/dL (28.0-37.0); MCV 94.1 fL (80.0-100.0); RBC 3.18 mil/uL (4.20-5.00); RDW 17.7 % (10.5-14.5); WBC 11.1 thou/uL (4.0-11.0)
[2016-06-30 05:18] LABS: HEMOGLOBIN 10.1 gm/dL (12.0-15.0)
[2016-06-30 05:32] LABS: CALCIUM 8.7 mg/dL (8.5-10.1); CREATININE 0.5 mg/dL (0.6-1.0); POTASSIUM 3.3 mmol/L (3.5-5.1)
[2016-06-30 09:43] LABS: OBSERVED RETIC COUNT 1.78 % (0.6-2.6)
[2016-06-30 09:45] VITALS: BP 156/69
[2016-06-30 11:51] LABS: % SATURATION 6 % (20-39); IRON 9 ug/dL (50-170); TIBC 151 ug/dL (250-450); UIBC 142 ug/dL
[2016-06-30 16:30] VITALS: BP 166/75
[2016-06-30 20:00] VITALS: BP 162/63
[2016-07-01 04:00] VITALS: BP 141/83
[2016-07-01 05:48] LABS: HEMATOCRIT 30.9 % (37.0-47.0); HEMOGLOBIN 10.3 gm/dL (12.0-15.0)
[2016-07-01 08:50] VITALS: BP 151/82
[2016-07-01 15:10] VITALS: BP 127/86
[2016-07-01 17:51] LABS: INR 1.2; PROTIME 11.7 Seconds (9.3-11.4)
[2016-07-01 20:00] VITALS: BP 158/87
[2016-07-01 23:47] VITALS: BP 155/92
[2016-07-02 04:07] VITALS: BP 155/101
[2016-07-02 05:10] LABS: HEMATOCRIT 36.2 % (37.0-47.0); HEMOGLOBIN 11.9 gm/dL (12.0-15.0); MCH 31.1 pg (26.0-34.0); MCHC 32.9 g/dL (28.0-37.0); MCV 94.4 fL (80.0-100.0); RBC 3.83 mil/uL (4.20-5.00); RDW 17.3 % (10.5-14.5); WBC 9.9 thou/uL (4.0-11.0)
[2016-07-02 05:20] LABS: INR 1.5; PROTIME 15.4 Seconds (9.3-11.4)
[2016-07-02 05:29] LABS: CALCIUM 8.9 mg/dL (8.5-10.1); CREATININE 0.7 mg/dL (0.6-1.0)
[2016-07-02 07:29] VITALS: BP 136/89
[2016-07-02 10:30] LABS: URINE BILIRUBIN NEGATIVE (Negative); URINE BLOOD TRACE (Negative); URINE GLUCOSE-RANDOM* NEGATIVE (Negative); URINE KETONES 1+ (Negative); URINE LEUKOCYTES-REFLEX TRACE (Negative); URINE PROTEIN (DIPSTICK) 1+ (Negative); URINE SPECIFIC GRAVITY 1.025 (1.003-1.035); URINE UROBILINOGEN 0.2 E.U./dl (0.2-1.0)
[2016-07-02 10:31] LABS: URINE COLOR AMBER
[2016-07-02 10:42] LABS: CASTS None Seen /LPF (None Seen); CRYSTALS None Seen /LPF (None Seen); URINE WBC-REFLEX 6-15 Few /HPF (0-5)
[2016-07-02 10:43] LABS: SQUAMOUS 4-10 Moderate /LPF (0-3); URINE RBC 0-2 Rare /HPF (0-2)
[2016-07-02 11:41] VITALS: BP 170/87
[2016-07-02 16:40] VITALS: BP 132/96; BP 151/103
[2016-07-02 19:06] VITALS: BP 157/82
[2016-07-03 03:30] VITALS: BP 145/94
[2016-07-03 06:17] LABS: HEMOGLOBIN 11.6 gm/dL (12.0-15.0); MCH 31.1 pg (26.0-34.0); MCHC 33.2 g/dL (28.0-37.0); MCV 93.9 fL (80.0-100.0); RBC 3.72 mil/uL (4.20-5.00); RDW 17.2 % (10.5-14.5); WBC 8.4 thou/uL (4.0-11.0)
[2016-07-03 06:32] LABS: CALCIUM 9.1 mg/dL (8.5-10.1); CREATININE 0.5 mg/dL (0.6-1.0); INR 1.4; POTASSIUM 3.5 mmol/L (3.5-5.1); PROTIME 14.5 Seconds (9.3-11.4)
[2016-07-03 08:18] VITALS: BP 153/85
[2016-07-03 12:23] VITALS: BP 136/91
[2016-07-03 15:52] VITALS: BP 177/87
[2016-07-03 20:00] VITALS: BP 178/108
[2016-07-03 23:07] VITALS: BP 143/83
[2016-07-04 04:06] VITALS: BP 157/106
[2016-07-04 04:35] LABS: PROTIME 22.4 Seconds (9.3-11.4)
[2016-07-04 04:49] LABS: INR 2.2
[2016-07-04 07:16] VITALS: BP 183/105
[2016-07-04 11:56] VITALS: BP 138/100
[2016-07-04 16:51] VITALS: BP 153/100
[2016-07-04 19:18] VITALS: BP 148/90
[2016-07-05 02:20] LABS: HEMATOCRIT 33.1 % (37.0-47.0); HEMOGLOBIN 10.9 gm/dL (12.0-15.0); MCH 30.8 pg (26.0-34.0); MCHC 32.7 g/dL (28.0-37.0); MCV 94.2 fL (80.0-100.0); PLATELET COUNT 353 thou/uL (150-400); RBC 3.52 mil/uL (4.20-5.00); WBC 8.1 thou/uL (4.0-11.0)
[2016-07-05 02:21] LABS: MANUAL DIFF YES
[2016-07-05 02:29] LABS: INR 2.4; PROTIME 24.8 Seconds (9.3-11.4)
[2016-07-05 02:36] LABS: ALBUMIN 2.2 g/dL (3.4-5.0); CALCIUM 9.1 mg/dL (8.5-10.1); CREATININE 0.8 mg/dL (0.6-1.0); MAGNESIUM 2.6 mg/dL (1.8-2.4); PHOSPHORUS 2.2 mg/dL (2.5-4.9); POTASSIUM 3.3 mmol/L (3.5-5.1); TOTAL BILIRUBIN 0.4 mg/dL (<0.1-1.0); TOTAL PROTEIN 4.9 g/dL (6.4-8.2)
[2016-07-05 02:55] LABS: ABSOLUTE NEUTROPHILS 5.8 thou/uL (1.4-8.2); ANISOCYTOSIS 1+; TOTAL CELL COUNT 100
[2016-07-05 03:10] VITALS: BP 119/81
[2016-07-05 08:31] VITALS: BP 125/82
[2016-07-05 12:10] VITALS: BP 153/80
[2016-07-05 15:57] VITALS: BP 145/68
[2016-07-05 19:00] VITALS: BP 131/73
[2016-07-06 05:02] VITALS: BP 128/87
[2016-07-06 07:45] LABS: HEMATOCRIT 34.9 % (37.0-47.0); HEMOGLOBIN 11.8 gm/dL (12.0-15.0); MCH 32.1 pg (26.0-34.0); MCHC 33.8 g/dL (28.0-37.0); MCV 94.9 fL (80.0-100.0); PLATELET COUNT 349 thou/uL (150-400); RBC 3.68 mil/uL (4.20-5.00); RDW 17.3 % (10.5-14.5); WBC 8.4 thou/uL (4.0-11.0)
[2016-07-06 07:46] LABS: MANUAL DIFF YES
[2016-07-06 07:56] LABS: PROTIME 11.4 Seconds (9.3-11.4)
[2016-07-06 07:57] LABS: INR 1.1
[2016-07-06 08:00] LABS: CALCIUM 8.6 mg/dL (8.5-10.1); CREATININE 0.7 mg/dL (0.6-1.0); MAGNESIUM 2.5 mg/dL (1.8-2.4); POTASSIUM 3.6 mmol/L (3.5-5.1)
[2016-07-06 08:15] VITALS: BP 133/82
[2016-07-06 08:55] LABS: ABSOLUTE NEUTROPHILS 6.6 thou/uL (1.4-8.2); ANISOCYTOSIS 1+; OVALOCYTES FEW; TOTAL CELL COUNT 100
[2016-07-06 11:16] VITALS: BP 115/70
[2016-07-06 15:31] VITALS: BP 116/70
[2016-07-06 20:06] VITALS: BP 143/63
[2016-07-07 04:10] VITALS: BP 130/72
[2016-07-07 07:40] LABS: HEMATOCRIT 33.8 % (37.0-47.0); HEMOGLOBIN 11.1 gm/dL (12.0-15.0); MCH 31.1 pg (26.0-34.0); MCHC 32.8 g/dL (28.0-37.0); MCV 94.6 fL (80.0-100.0); PLATELET COUNT 324 thou/uL (150-400); RBC 3.57 mil/uL (4.20-5.00); RDW 17.3 % (10.5-14.5); WBC 5.6 thou/uL (4.0-11.0)
[2016-07-07 07:42] LABS: MANUAL DIFF YES
[2016-07-07 07:49] LABS: CALCIUM 8.3 mg/dL (8.5-10.1); CREATININE 0.6 mg/dL (0.6-1.0); MAGNESIUM 2.4 mg/dL (1.8-2.4); PHOSPHORUS 2.8 mg/dL (2.5-4.9); POTASSIUM 3.8 mmol/L (3.5-5.1)
[2016-07-07 07:57] LABS: PROTIME 10.6 Seconds (9.3-11.4)
[2016-07-07 08:11] LABS: ABSOLUTE NEUTROPHILS 3.8 thou/uL (1.4-8.2); ATYPICAL LYMPHS 1 %; METAMYELOCYTES 1 %; TOTAL CELL COUNT 100
[2016-07-07 08:13] LABS: ANISOCYTOSIS 1+
[2016-07-07 08:56] VITALS: BP 129/66
[2016-07-07 13:02] VITALS: BP 140/63
[2016-07-07 16:38] VITALS: BP 114/62
[2016-07-07 19:30] VITALS: BP 121/66
[2016-07-08 04:00] VITALS: BP 113/58
[2016-07-08 05:47] LABS: CALCIUM 8.2 mg/dL (8.5-10.1); CREATININE 0.6 mg/dL (0.6-1.0); MAGNESIUM 2.1 mg/dL (1.8-2.4); PHOSPHORUS 3.1 mg/dL (2.5-4.9); POTASSIUM 3.6 mmol/L (3.5-5.1)
[2016-07-08 05:48] LABS: INR 1.1
[2016-07-08 07:27] VITALS: BP 109/56
[2016-07-08 11:32] VITALS: BP 114/53
[2016-07-08] MEDS ORDERED: ALTEPLASE INJECTION (12:02)
[2016-07-08] MEDS ORDERED: ATENOLOL 50MG T50 M1 PO (12:03)
[2016-07-08] MEDS ORDERED: GUAIFENESIN/COD10 M1 PO (12:04)
[2016-07-08] MEDS ORDERED: ONDANSETRON HCL4 M1 IV PUSH (12:05)
[2016-07-08] MEDS ORDERED: PANTOPRAZOLE SO40 M1 PO (12:05)
== END 2016-07-08 16:06 | DRG 329 ==
LOC: ER 20:12 → 3N 23:06 → EROBS 23:06 → 3N 06-24 00:56 → 4W 07-01 20:34
PROVIDERS: Internal Medicine; Internal Medicine Gastroenterology; Internal Medicine Hematology & Oncology; Nurse Practitioner Family; Surgery
PROC: 02HV33Z Insertion of Infusion Device into Superior Vena Cava, Percutaneous Approach (ICD-10-PCS; 2016-06-27)
PROC: B548ZZA Ultrasonography of Superior Vena Cava, Guidance (ICD-10-PCS; 2016-06-27)
PROC: 07BB3ZX Excision of Mesenteric Lymphatic, Percutaneous Approach, Diagnostic (ICD-10-PCS; principal; 2016-06-28)
PROC: 0FB03ZX Excision of Liver, Percutaneous Approach, Diagnostic (ICD-10-PCS; principal; 2016-06-28)
PROC: 0DBK8ZX Excision of Ascending Colon, Via Natural or Artificial Opening Endoscopic, Diagnostic (ICD-10-PCS; principal; 2016-06-28)
PROC: 0DTF0ZZ Resection of Right Large Intestine, Open Approach (ICD-10-PCS; principal; 2016-06-28)
DX: C18.9 Malignant neoplasm of colon, unspecified (principal); E43 Unspecified severe protein-calorie malnutrition; K56.60 Unspecified intestinal obstruction; C78.7 Secondary malignant neoplasm of liver and intrahepatic bile duct; N39.0 Urinary tract infection, site not specified; D68.59 Other primary thrombophilia; C77.9 Secondary and unspecified malignant neoplasm of lymph node, unspecified; M06.9 Rheumatoid arthritis, unspecified; K59.00 Constipation, unspecified; I48.2 Chronic atrial fibrillation; K21.9 Gastro-esophageal reflux disease without esophagitis; I89.0 Lymphedema, not elsewhere classified; I72.0 Aneurysm of carotid artery; F41.9 Anxiety disorder, unspecified; E03.9 Hypothyroidism, unspecified; Z96.653 Presence of artificial knee joint, bilateral; I11.9 Hypertensive heart disease without heart failure; D50.9 Iron deficiency anemia, unspecified; K57.90 Diverticulosis of intestine, part unspecified, without perforation or abscess without bleeding; D72.829 Elevated white blood cell count, unspecified; E87.6 Hypokalemia; Z68.28 Body mass index [BMI] 28.0-28.9, adult; Z88.0 Allergy status to penicillin; Z86.73 Personal history of transient ischemic attack (TIA), and cerebral infarction without residual deficits; Z90.710 Acquired absence of both cervix and uterus; Z90.49 Acquired absence of other specified parts of digestive tract; Z85.3 Personal history of malignant neoplasm of breast; Z79.899 Other long term (current) drug therapy; Z88.2 Allergy status to sulfonamides
CPT/HCPCS: 10045; 10047; 10096; 27000; 50010; 50093; 50101; 50249; 50386; 50455; 50555; 50953; 51046; 51412; 51435; 51708; 51712; 52265; 53307; 53314; 56462; 56527; 56530; 56639; 56760; 57092; 62110; 62900; 70005

== ENCOUNTER 2016-07-29 13:51 | Inpatient (IN) | payer OTHER ==
[~2016-07-29] VITALS: Ht 170.2 cm; Wt 83.0 kg
--- NOTE | ~2016-07-29 | HC ---
[facility] [place] [address] CONSULTATION Name: LUIS E KUHN Room #: 462-P ADM IN M.R.#: [id number] Admission: 07/29/16 Attend Phys: Rhett Marin MD Discharge: Date of : 30 Report #: [id number] THIS REPORT FOR: //name// CC: Bonilla Marin HISTORY OF PRESENT ILLNESS: The patient is an 86-year-old woman with atrial fibrillation. She was admitted in June with small-bowel obstruction and an ileocecal/right colonic mass. This was a very lengthy and prolonged hospitalization, but in short was notable for open right-sided colon resection, which turned out to be colon cancer and liver metastases were seen. Prior to that, she had been maintained on flecainide for very rare episodes of paroxysmal atrial fibrillation. During this complicated hospitalization notable for recurrent ileus, she developed atrial fibrillation. This was rate controlled and largely asymptomatic. A rate control strategy with anticoagulant therapy was recommended. She was discharged to [facility]. She has been starting therapy. Her therapy involves 2 caregivers who help her with walking and primarily keep her from falling. She reports terrible gait and balance problems. Yesterday, she was trying to get to the commode which was 1 foot away, lost her balance and fell injuring right side of her head, right knee and neck. Radiographic imaging of all these spots was unrevealing. She denies palpitations, chest heaviness or pressure. She denies near syncope or syncope. ALLERGIES: Include PENICILLIN, SULFA, and ADHESIVE TAPE. MEDICATIONS: Include iron, atenolol 50 mg twice daily, Protonix, amlodipine 5 mg daily, losartan 50 mg daily, levothyroxine 50 mcg daily, hydrochlorothiazide 12.5 mg daily. PAST MEDICAL HISTORY: Past history and medical records have been reviewed and includes a history of colon cancer with resection, small brain aneurysm, lymphedema, left total knee replacement, right total knee replacement, left breast carcinoma with radiation and chemotherapy, back surgery, parathyroidectomy. SOCIAL HISTORY: She is nonsmoker, nondrinker. FAMILY HISTORY: Notable for breast cancer. Mother had a pacemaker. REVIEW OF SYSTEMS: All systems negative except as that noted above. PHYSICAL EXAMINATION: GENERAL: A pleasant woman in no distress. VITAL SIGNS: Blood pressure is 118/50, heart rate of 100 and irregular, respirations unlabored at 18. She is afebrile, 5 feet 7 inches tall, 183 pounds. HEENT: There are neither xanthelasma, subcutaneous xanthomata, [place] [address] CONSULTATION Name: LUIS E KUHN GARRISON Room #: 462-P [facility] IN M.R.#: [id number] Admission: 07/29/16 Attend Phys: Rhett Marin MD Discharge: Date of : 30 Report #: [id number] digital cyanosis or kyphoscoliosis present. CHEST: Clear to auscultation and percussion. CARDIAC: An irregularly irregular rhythm with a normal S1, S2. ABDOMEN: Soft and nontender. EXTREMITIES: Without cyanosis, clubbing or edema. Radial pulses are 2+. NEUROLOGIC: She is alert with a nonfocal exam. LABORATORY DATA: Sodium 141, potassium 4.0, creatinine 0.7. Troponin of 0. INR of 3.0. White count 6.5, hemoglobin 10, hematocrit 33, platelet count 287. RADIOLOGICAL DATA: Hip x-ray demonstrates no fracture. Chest x-ray is clear. Head CT is normal. EKG: Atrial fibrillation. IMPRESSION: 1. Permanent atrial fibrillation. 2. Nonsyncopal fall with injury. 3. Right colon carcinoma with open resection, metastatic disease to the liver, positive lymph nodes. 4. Hypertension. 5. Rheumatoid arthritis. 6. Reflux disease. 7. Chronic lymphedema. 8. Hypercoagulable syndrome. RECOMMENDATIONS: 1. Continued anticoagulant therapy (INR 2-3 range). 2. Continued atenolol for rate control. 3. No further testing is needed at this point. During her recent hospitalization, an echocardiogram demonstrated normal left ventricular systolic function. Significant valvular heart disease was absent. Thank you for asking me to participate in her care. <ELECTRONICALLY SIGNED> By: Felix Tolbert MD, FACC 07/31/16 1051 0921 0300 Felix Tolbert MD, FACC /nt
--- NOTE | ~2016-07-29 | EKG ---
[place] [address] [facility] [place] [address] ELECTROCARDIOGRAM REPORT Name: HATTIELUIS E YANSA Room #: 462-P ADM IN M.R.#: [id number] Admission: 07/29/16 Attend Phys: Rhett Marin MD Discharge: Date of : 30 Report #: [id number] THIS REPORT FOR: //name// [facility] ED Test Date: 2016-07-29 Test Time: 15:02:44 Pat Name: LUIS E KUHN Department: Room: 462 Gender: F Deicer Tester: KARIME : 1930 Requested By: Renetta Manley Order Number: [id number] MD: Felix Tolbert Measurements Intervals [place] Rate: 109 P: MA: QRS: -9 QRSD: 111 T: 45 QT: 376 QTc: 507 Interpretive Statements Atrial fibrillation Low voltage, extremity leads Prolonged QT interval Compared to ECG 07/01/2016 13:02:59 No significant change was found Electronically Signed On 07-30-2016 10:09:40 CDT by Felix Tolbert [email or web address] <ELECTRONICALLY SIGNED> By: Felix Tolbert MD, [facility] 07/30/16 1009 1502 1502 Felix Tolbert MD, [facility] /EPI
--- NOTE | ~2016-07-29 | HC ---
[facility] [place] [address] CONSULTATION Name: LUIS E KUHN Room #: 457-P [facility] IN M.R.#: [id number] Admission: 07/29/16 Attend Phys: Bonilla Sullivan MD Discharge: 08/03/16 Date of : 30 Report #: [id number] THIS REPORT FOR: //name// CC: Bonilla Delaney [facility] HISTORY OF PRESENT ILLNESS: The patient is an 86-year-old white female who originally was admitted from 06/23-07/08 for resection of a colon cancer. This was noted to be adenocancer with metastases to lymph nodes and liver. Course was complicated by chronic atrial fibrillation, warranting anticoagulation with Coumadin. She was transferred to [facility] rehab. She was doing better and working on functional mobility when she had complaints of dizziness and fell hitting her head. There was no loss of consciousness. She had a superficial contusion of the right face. CT of the head was negative. She was noted to have orthostasis contributing to her dizziness and Dr. Sullivan has been working on her blood pressure medications. She has recurrent UTI and being treated. She was noted to have a closed head injury with right temporal contusion, but has been resumed on warfarin and is noted to have no further mentation issues. We are seeing her in rehabilitation medicine consultation. PAST MEDICAL HISTORY: Includes adenocarcinoma of the hepatic flexure of the colon with metastatic disease to lymph nodes and liver, chronic atrial fibrillation, chronic UTIs, hypertension, rheumatoid arthritis, osteoarthritis, GERD, anxiety, chronic dependent edema, history of breast cancer without recurrence, and hypothyroidism. ALLERGIES: PENICILLIN, SULFA, TAPE, and possibly CEPHALOSPORINS. MEDICATIONS: Please see the full medication listing. FAMILY HISTORY: Noncontributory. SOCIAL HISTORY: The patient is . She lives with her in a house, split levels, 6 steps in and then another 6 steps inside to the bedroom and bathroom. She notes that she needs to go up and down the 6 steps in her house. She is a walker and notes that the house is too small for a regular walker. Her is there and can be of assistance if needed. She notes that she is essentially home bound except going to the doctor. REVIEW OF SYSTEMS: Did not offer any current complaints of chest pain, shortness of breath or abdominal discomfort. She does have a history of some lower extremity swelling/lymphedema. She has had recurrent urinary tract infections. She does have the recent colon cancer. PHYSICAL EXAMINATION: GENERAL: Pleasant 86-year-old white female, in no obvious distress. VITAL SIGNS: Last recorded temperature is 98, pulse 126, respirations 20, and [facility] [address] [place] [address] CONSULTATION Name: LUIS E KUHN COWETA Room #: 457-P [facility] IN M.R.#: [id number] Admission: 07/29/16 Attend Phys: Bonilla Sullivan MD Discharge: 08/03/16 Date of : 30 Report #: [id number] blood pressure 107/70. NEUROLOGIC: She is alert, pleasant, oriented, appears to be a good historian. Facies revealed resolving ecchymosis along the right temporal area and along the forehead. EOMs are full. She appears to be a good historian. ABDOMEN: She does have the midline incision, which is dressed. EXTREMITIES: She has functional range of motion of both upper extremities, strength is a grade 4 to 4-/5. DTRs are trace to 1. Lower extremities, no focal calf swelling. Tone appeared to be intact. Strength is grade 4-/5. She has had bilateral past knee replacements. She does have some edema, mild in lower extremities without any pitting consistent with more of a chronic lymphedema. Functionally, she is min assist with bed to chair. Gait 20 feet front-wheeled walker, contact guard assistance. ASSESSMENT: An 86-year-old white female with the following problem list: 1. Medical complexity with generalized debilitation. 2. Orthostatic hypotension. 3. Gait instability with recent fall with right facial contusion. 4. Recent resection, colon cancer with history of metastatic disease to the lymph nodes and liver. 5. Chronic atrial fibrillation for which she has been on anticoagulation. 6. Recurrent urinary tract infections. PLAN: We would anticipate that the patient would be a candidate for an acute in-hospital inpatient rehabilitation stay as she further medically stabilizes. Discussion with the patient and her . She appears very motivated to eventually return back to the home setting as her strength improves and her dizziness is decreased. The goal is to improve her overall endurance as well. We will be glad to follow along with you regarding her rehab therapy needs. <ELECTRONICALLY SIGNED> By: Stef Cuellar MD 08/09/16 1821 [id number] [id number] Stef Cuellar MD /nt
--- NOTE | ~2016-07-29 | H ---
[facility] [place] [address] HISTORY AND PHYSICAL Name: LUIS E KUHN Room #: 457-P [facility] IN M.R.#: [id number] Admission: 07/29/16 Attend Phys: Bonilla Sullivan MD Discharge: 08/03/16 Date of : 30 Report #: [id number] THIS REPORT FOR: //name// [facility] DATE OF SERVICE: 07/29/2016 CHIEF COMPLAINT: Dizziness with fall and head injury. HISTORY OF PRESENT ILLNESS: The patient is an 86-year-old female who was recently hospitalized at [facility] from 06/23/2016 through 07/08/2016 after undergoing resection of colon cancer. 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 She also has chronic atrial fibrillation requiring anticoagulation with Coumadin. She was undergoing rehabilitation at [facility] and started having dizziness roughly 4-5 days prior to admission. She reports that the dizziness would occur while she was working with therapy, she would then stop and go away. She denies dizziness while lying in bed, eating, sit up in chair or watching TV. On the day of admission, she reported she had transferred to bedside commode without difficulty. She threw some trash away and when she turned to head to bed, she felt dizziness and fell. She denies loss of consciousness. She did strike her head. She denies lower extremity weakness; however, given that she is on warfarin, she was brought to [facility] Emergency Room for evaluation. In the emergency department, she was found to have chronic atrial fibrillation and urinary tract infection. She was given Rocephin; however, she complains of itchiness during the night. She has been admitted for further medical management. PAST MEDICAL HISTORY: Adenocarcinoma of hepatic flexure of the colon with metastatic disease to lymph nodes and liver, chronic atrial fibrillation, chronic UTIs, hypertension, rheumatoid arthritis, osteoarthritis, gastroesophageal reflux disease, anxiety, chronic dependent edema, history of breast cancer without recurrence, hypothyroidism. ALLERGIES: PENICILLIN, SULFA, TAPE AND POSSIBLY CEPHALOSPORINS. MEDICATIONS: Warfarin 5 mg daily, Synthroid 50 mcg daily, amlodipine 5 mg daily, irbesartan 300 mg daily, Vitron C two tablets daily, flecainide 100 mg daily, cyclosporine ophthalmic drops 1 drop each eye b.i.d., potassium chloride 10 mEq daily, hydrochlorothiazide 12.5 mg daily, MiraLax 17 grams in 8 ounce water weekly, atenolol 50 mg b.i.d., guaifenesin 5 mL p.o. q.4 hours p.r.n., Zofran 4 mg every 4 hours p.r.n., Protonix 40 mg daily. FAMILY HISTORY: Noncontributory. [facility] [address] [place] [address] HISTORY AND PHYSICAL Name: LUIS E KUHN CAILIN Room #: 457-P [facility] IN M.R.#: [id number] Admission: 07/29/16 Attend Phys: Bonilla Sullivan MD Discharge: 08/03/16 Date of : 30 Report #: [id number] SOCIAL HISTORY: The patient is . She was living at home with her , but is currently staying at [facility] while she recovers from her surgery, though she tells me that they had planned discharge for this coming Monday. She denies tobacco use and admits to drinking 1 beer on Sundays with her pizza. REVIEW OF SYSTEMS: HEENT: Negative. NECK: Negative. PULMONARY: Negative. Denies shortness of breath. CARDIAC: Negative. Denies chest pains or palpitations, though she does have chronic edema. GASTROINTESTINAL: Recent colon cancer, otherwise negative. GENITOURINARY: She has sense of incomplete bladder emptying, has recurrent urinary tract infections. MUSCULOSKELETAL: Negative. LYMPHATICS: Negative. PHYSICAL EXAMINATION: GENERAL: The patient is pleasant, cooperative, elderly female sitting in bed in no apparent distress. VITAL SIGNS: Reveal temperature of 36.5, pulse of 91, respiratory rate of 18, blood pressure has ranged from 86/63 to 151/81. HEENT: Head is normocephalic with noted bruising and ecchymosis about her right nondenominational. Pupils are equal and reactive. Extraocular muscles are intact. Oropharynx is moist. NECK: Supple. Trachea is midline. LUNGS: Clear to auscultation. CARDIOVASCULAR: Irregularly irregular. ABDOMEN: Soft, nontender and nondistended with normoactive bowel sounds. SKIN: She has a dressing just above the umbilicus. MUSCULOSKELETAL: Reveals equal and symmetric strength throughout with mild lower extremity edema. LYMPHATICS: No cervical . MUSCULOSKELETAL: Reveals 5/5 equal and symmetric strength throughout. NEUROLOGIC: She is awake, alert, oriented times 3. She has noted minimal bilateral nystagmus. Cranial nerves 2-12 within normal limits. Otherwise, she has no focal neurologic deficit or lateralizing signs. LABORATORY DATA: WBC 6.5, hemoglobin 10.9, hematocrit is 33.1. INR is 3.0. BNP is 1517, albumin is 2.8. Urinalysis shows blood 1+, nitrite positive, leukocyte esterase 3+, WBC many, bacteria many. RADIOGRAPHIC STUDIES: CT of the head shows no acute intracranial process, midline shift, mass effect or hemorrhage, no significant change from previous exam. Age-related atrophy and chronic microvascular white matter ischemia [facility] [address] [place] [address] HISTORY AND PHYSICAL Name: LUIS E KUHN Room #: 457-P [facility] IN M.R.#: [id number] Admission: 07/29/16 Attend Phys: Bonilla Sullivan MD Discharge: 08/03/16 Date of : 30 Report #: [id number] spine without contrast shows no acute fracture or dislocation or subluxation. There are degenerative changes noted. ASSESSMENT: 1. Dizziness with fall resulting in acute closed head injury in a patient requiring anticoagulation with Coumadin due to atrial fibrillation. 2. Acute nonhemorrhagic cystitis/urinary tract infection. 3. Chronic atrial fibrillation. 4. Metastatic colon cancer, status post hemicolectomy. 5. Rheumatoid arthritis. 6. Hypertension. PLAN: Admission, continue telemetry, we will start ciprofloxacin since I am concerned she developed an allergic reaction with ROCEPHIN as she was itching overnight. Appreciate cardiology consultation, however, we will need to address whether she is safe to continue warfarin given recent fall. We will perform orthostatics. We will monitor INR, we will initiate DVT prophylaxis with SCDs considering that she might have to come off warfarin. We will also ask physical therapy and occupational therapy to evaluate and treat. <ELECTRONICALLY SIGNED> By: Rhett Marin MD 08/11/16 2131 [id number] [id number] MD eusebio Keane
[~2016-07-29 13:51] MED LIST changes: +ALTEPLASE INJECTION; +ATENOLOL 50MG T50 M1 PO; +GUAIFENESIN/COD10 M1 PO; +IRBESARTAN300 MG PO; +METHOTREXATE 22.5 MG PO; +MIRALAX17 GM PO; +NORVASC5 MG PO; +ONDANSETRON HCL4 M1 IV PUSH; +PANTOPRAZOLE SO40 M1 PO; +RESTASIS1 EACH OPHTHALMIC; +TENORMIN25 MG PO; +VITRON-C TABLE1 EAC1 PO; +[UNRECOGNIZED DRUG - OTHER] OPHTHALMIC
[2016-07-29 13:52] VITALS: BP 144/93
[2016-07-29 14:34] LABS: ABSOLUTE NEUTROPHILS 4.1 thou/uL (1.4-8.2); EOSINOPHILS 3.6 % (0.0-3.0); HEMATOCRIT 33.1 % (37.0-47.0); HEMOGLOBIN 10.9 gm/dL (12.0-15.0); LYMPHOCYTES 21.6 % (24.0-44.0); PLATELET COUNT 287 thou/uL (150-400); POLYS 62.8 % (36.0-66.0); RBC 3.64 mil/uL (4.20-5.00); RDW 17.3 % (10.5-14.5); WBC 6.5 thou/uL (4.0-11.0)
[2016-07-29 14:36] LABS: MANUAL DIFF NO
[2016-07-29 14:48] LABS: ANION GAP 6 mmol/L (7-16); BUN 11 mg/dL (7-18); CALCIUM 9.4 mg/dL (8.5-10.1); CHLORIDE 104 mmol/L (98-107); CO2 29 mmol/L (21-32); CREATININE 0.7 mg/dL (0.6-1.0); GLUCOSE 106 mg/dL (74-106); SODIUM 139 mmol/L (136-145)
[2016-07-29 14:56] LABS: ALBUMIN 2.8 g/dL (3.4-5.0); ALKALINE PHOSPHATASE 87 U/L (46-116); NT-PRO BRAIN NAT PEPTIDE 1517 pg/mL (<300); SGOT 20 U/L (15-37); SGPT 17 U/L (30-65); TOTAL BILIRUBIN 0.4 mg/dL (<0.1-1.0); TOTAL PROTEIN 5.8 g/dL (6.4-8.2); TROPONIN-I < 0.04 ng/mL (<0.04-0.07)
[2016-07-29 15:11] LABS: URINE BILIRUBIN NEGATIVE (Negative); URINE BLOOD 1+ (Negative); URINE COLOR YELLOW; URINE GLUCOSE-RANDOM* NEGATIVE (Negative); URINE KETONES NEGATIVE (Negative); URINE NITRITE POSITIVE (Negative); URINE PROTEIN (DIPSTICK) NEGATIVE (Negative); URINE SPECIFIC GRAVITY <= 1.005 (1.003-1.035); URINE UROBILINOGEN 0.2 E.U./dl (0.2-1.0)
[2016-07-29 15:17] LABS: SQUAMOUS 0-3 Few /LPF (0-3); URINE WBC >25 Many /HPF (0-5)
[2016-07-29 15:18] LABS: BACTERIA >30 Many /HPF (None Seen); CASTS None Seen /LPF (None Seen); CRYSTALS None Seen /LPF (None Seen)
[2016-07-29 17:31] VITALS: BP 142/91
[2016-07-29 18:17] VITALS: BP 142/70
[2016-07-29 20:09] VITALS: BP 151/81
[2016-07-30] VITALS (7 sets, daily range): BP systolic 86–118; BP diastolic 43–81
[2016-07-30 11:50] LABS: HEMATOCRIT 33.2 % (37.0-47.0); MCH 29.9 pg (26.0-34.0); MCHC 33.1 g/dL (28.0-37.0); MCV 90.3 fL (80.0-100.0); RBC 3.68 mil/uL (4.20-5.00); RDW 17.4 % (10.5-14.5); WBC 8.2 thou/uL (4.0-11.0)
[2016-07-30 12:05] LABS: INR 2.1; PROTIME 22.1 Seconds (9.3-11.4)
[2016-07-31 03:46] VITALS: BP 85/45
[2016-07-31 06:41] LABS: INR 2.1; PROTIME 21.4 Seconds (9.3-11.4)
[2016-07-31 06:43] LABS: % SATURATION 6 % (20-39); IRON 14 ug/dL (50-170); TIBC 218 ug/dL (250-450); UIBC 204 ug/dL
[2016-07-31 07:23] VITALS: BP 108/60
[2016-07-31 11:12] VITALS: BP 107/62
[2016-07-31 15:51] VITALS: BP 107/69
[2016-07-31 19:32] VITALS: BP 110/67
[2016-08-01] VITALS (11 sets, daily range): BP systolic 102–144; BP diastolic 62–95
[2016-08-02 04:27] VITALS: BP 119/62
[2016-08-02 08:00] VITALS: BP 107/70; BP 115/84; BP 126/90
[2016-08-02 12:45] VITALS: BP 109/69
[2016-08-02 16:06] VITALS: BP 116/74
[2016-08-02 16:06] LABS: INR 1.3; PROTIME 13.5 Seconds (9.3-11.4)
[2016-08-02 19:39] VITALS: BP 108/70
[2016-08-02 23:36] VITALS: BP 103/58
[2016-08-03] MEDS ORDERED: CLARITIN10 M2 PO (00:13)
[2016-08-03] MEDS ORDERED: CIPRO500 MG PO (00:14)
[2016-08-03] MEDS ORDERED: ATENOLOL 50MG T50 M1 PO (00:15)
[2016-08-03] MEDS ORDERED: MIRALAX17 GM PO (00:16)
[2016-08-03 03:05] VITALS: BP 112/78
[2016-08-03 07:37] VITALS: BP 117/80
[2016-08-03 07:39] LABS: INR 1.3; PROTIME 13.1 Seconds (9.3-11.4)
== END 2016-08-03 10:23 | DRG 872 ==
LOC: ER 13:51 → EROBS 15:51 → 4W 15:51
PROVIDERS: Internal Medicine; Nurse Practitioner Family
PROC: 02HV33Z Insertion of Infusion Device into Superior Vena Cava, Percutaneous Approach (ICD-10-PCS; principal; 2016-07-29)
DX: A41.9 Sepsis, unspecified organism (principal); N39.0 Urinary tract infection, site not specified; D68.59 Other primary thrombophilia; C78.7 Secondary malignant neoplasm of liver and intrahepatic bile duct; C77.9 Secondary and unspecified malignant neoplasm of lymph node, unspecified; I95.1 Orthostatic hypotension; N30.90 Cystitis, unspecified without hematuria; S09.90XA Unspecified injury of head, initial encounter; I10 Essential (primary) hypertension; Z96.653 Presence of artificial knee joint, bilateral; E89.0 Postprocedural hypothyroidism; M06.9 Rheumatoid arthritis, unspecified; I48.0 Paroxysmal atrial fibrillation; I48.2 Chronic atrial fibrillation; K21.9 Gastro-esophageal reflux disease without esophagitis; I89.0 Lymphedema, not elsewhere classified; S80.01XA Contusion of right knee, initial encounter; S00.83XA Contusion of other part of head, initial encounter; F41.9 Anxiety disorder, unspecified; R53.81 Other malaise; R26.81 Unsteadiness on feet; D50.9 Iron deficiency anemia, unspecified; W18.39XA Other fall on same level, initial encounter; Y93.89 Activity, other specified; Y92.89 Other specified places as the place of occurrence of the external cause; Z79.899 Other long term (current) drug therapy; Z90.710 Acquired absence of both cervix and uterus; Z88.0 Allergy status to penicillin; Z85.3 Personal history of malignant neoplasm of breast; Z79.01 Long term (current) use of anticoagulants; Z85.828 Personal history of other malignant neoplasm of skin; Z88.2 Allergy status to sulfonamides; Z91.09 Other allergy status, other than to drugs and biological substances; Y99.8 Other external cause status
CPT/HCPCS: 10045

== ENCOUNTER 2016-08-03 09:10 | Inpatient (IN) | payer OTHER ==
[~2016-08-03] VITALS: Ht 170.2 cm; Wt 78.9 kg
--- NOTE | ~2016-08-03 | HC ---
[facility] [place] [address] CONSULTATION Name: LUIS E KUHN Room #: 512-P AD[facility] IN M.R.#: [id number] Admission: 08/03/16 Attend Phys: Stef Cuellar MD Discharge: Date of : 30 Report #: [id number] THIS REPORT FOR: //name// CC: Stef Sullivan DATE OF SERVICE: 08/06/2016 NEUROBEHAVIORAL STATUS EXAM ATTENDING PHYSICIAN: Stef Cuellar M.D. TUFTING CREELER: Kojo Rees, PhD CLINICAL PRESENTATION: The patient is an 86-year-old female admitted to the [facility] rehabilitation unit for a comprehensive inpatient rehabilitation program to improve functional mobility and activities of daily living and self-care secondary to medical deficits from medical complexity and generalized debility. She describes the admission to rehab is occurring following an event in which she fell in the bathroom at the hospital striking her head and face. There was no loss of consciousness, but a superficial contusion on the right side of her face. The patient has a prior history of anticoagulation and had a CT scan of the head, which was negative. However, she had bruising along the right part of her face and forehead. Her medical history includes recurrent urinary tract infections, her right temporal contusion from this fall, adenocarcinoma of the hepatic flexure of the colon with metastatic disease to lymph nodes and liver, chronic atrial fibrillation, UTI infections, hypertension, rheumatoid arthritis, osteoarthritis, GERD, anxiety, chronic dependent edema, history of breast cancer without recurrence and hypothyroidism. A complete description of her medical condition and history along with medications can be found in her medical record. Neuropsychological consultation was requested to provide assistance in the assessment of cognitive and emotional status and to provide recommendations and services. Prior to this recent hospitalization, she was living independently at her home with her . She had 3 children. One child from aneurysm at age 41. She has 1 daughter in [place] and her son living in the [place] area. 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 She quit driving because of difficulty with pain from her legs. TECHNIQUES UTILIZED: Clinical interview, review of medical records, staff consultation and behavioral observation, mini mental status exam 2 standard version, clock drawing and calibrated ideational fluency assessment (letter and category). [facility] [address] [place] [address] CONSULTATION Name: LUIS E KUHN BATH Room #: 512-P [facility] IN M.R.#: [id number] Admission: 08/03/16 Attend Phys: Stef Cuellar MD Discharge: Date of : 30 Report #: [id number] EXAMINATION FINDINGS: The patient was alert and cooperative with the assessment. She accurately described the reason for her hospitalization. There is no evidence of aphasia. She does not report auditory or visual hallucinations. Her thoughts are logical and goal oriented. She primarily describes her strong desire to return to her home. She does not report difficulty with memory, word finding, sleep or appetite. However, she has had appetite in the hospital somewhat decreased. Her performance on the MMSE 2 brief version is within normal limits with a raw score of 15 of 16. Her performance on the MMSE 2 standard version was within normal limits with a raw score 27 of 30. The patient was 4/5 for serial sevens. She had difficulty in copying a simple geometric design. She was also 2/3 days for immediate recall of 3 items after a brief time delay and distraction. Clock drawing was within normal limits. Verbal fluency assessment suggests mild deficits in category and total fluency. Letter fluency was within normal limits with a raw score of 15 and a T score of 48. Category fluency was at the 4th percentile with a raw score of 18, T score of 33 and percentile rank of 4. Overall, total fluency was in the mild range with a raw score at 33 and T score at 36. DIAGNOSTIC IMPRESSION: Mild neurocognitive disorder, unspecified -- without behavior disorder. RECOMMENDATIONS: The patient may have had a mild traumatic brain injury (concussion) from her fall. There is no retrograde or posttraumatic amnesia that is described. If continued deficits are noted in cognition upon her return home, a followup neuropsych assessment can be of benefit to clarify cognitive status. She may benefit from additional assistance from her , is to monitor management of medication to make sure everything is taken correctly. A structured and specific schedule will also be of benefit upon her return home. If cognition concerns are present following discharge then neuropsych assessment can be of benefit to clarify any cognitive deficits. Thank you very much for allowing me to provide the consultation on this patient. By: [id number] Kojo Rees, PhD /nt
--- NOTE | ~2016-08-03 | H ---
[facility] [place] [address] HISTORY AND PHYSICAL Name: LUIS E KUHN Room #: 512-P [facility] IN M.R.#: [id number] Admission: 08/03/16 Attend Phys: Stef Cuellar MD Discharge: 08/09/16 Date of : 30 Report #: [id number] THIS REPORT FOR: //name// CC: Stef Sullivan DATE OF SERVICE: 08/03/2016 HISTORY OF PRESENT ILLNESS: The patient is an 86-year-old white female originally admitted from 06/23/2016, to 07/08/2016, for resection of a colon cancer. This was noted to be adenocarcinoma with metastases to the lymph nodes and liver. Her course was complicated by chronic atrial fibrillation, warranting anticoagulation with Coumadin. She was transferred to [facility]. She was doing better, working on functional mobility when she had complaints of dizziness and fell while hitting her head. There was no loss of consciousness. She had a superficial contusion of the right face. With her prior history of anticoagulation, she was further evaluated. CT of the head was negative. She was noted to have orthostasis contributing to her dizziness, and Dr. Sullivan has been working on her blood pressure medications. She has a recurrent urinary tract infection that has been treated. She does have medical complexity with generalized debilitation. She was noted to have a closed head injury with a right temporal contusion, but has been resumed on Coumadin and is noted to have no further mentation issues per primary care. She has now been admitted for acute in-hospital inpatient rehabilitation. PAST MEDICAL HISTORY: Includes adenocarcinoma of the hepatic flexure of the colon with metastatic disease to the lymph nodes and liver, chronic atrial fibrillation, chronic urinary tract infections, hypertension, rheumatoid arthritis, osteoarthritis, GERD, anxiety, chronic dependent edema, history of breast cancer without recurrence and hypothyroidism. ALLERGIES: PENICILLIN, SULFA, TAPE AND POSSIBLY CEPHALOSPORINS. MEDICATIONS: Please see the full medication listing. Each of these medications was individually reconciled. FAMILY HISTORY: Noncontributory. SOCIAL HISTORY: , lives with her in a house, split-level, 6 steps in, and another 6 steps inside to the bedroom and bathroom. She does need to go up and down the 6 steps in her house. She tends to walk cruising furniture, and she notes that the house is too small for a regular walker. Her is there and can be of assistance if needed. REVIEW OF SYSTEMS: No complaints of chest pain, shortness of breath or abdominal discomfort. She does have a history of some lower extremity swelling [address] [address] HISTORY AND PHYSICAL Name: LUIS E KUHN COPPERAS COVE Room #: 512-P [facility] IN M.R.#: [id number] Admission: 08/03/16 Attend Phys: Stef Cuellar MD Discharge: 08/09/16 Date of : 30 Report #: [id number] and lymphedema. She does have the recurrent urinary tract infections. No focal extremity pain complaints. Complains of the dizziness with getting up and notes she needs to move slowly. She has the recent colon cancer. PHYSICAL EXAMINATION: GENERAL: An 86-year-old white female in no obvious distress. VITAL SIGNS: Last recorded temperature 97.6, pulse 95, respirations 20, blood pressure 117/80. She is alert. HEENT: Appeared to be benign. Cranial nerves are grossly intact. She does have the right facial ecchymosis. She appears to be a reasonable historian. EXTREMITIES: Functional range of motion of both upper extremities, strength is grade 4 to 4-/5. DTRs are trace to 1. Functional range of motion of both lower extremities, strength is grade 4-/5. DTRs are trace to 1. No focal calf swelling. Tone appeared to be intact. CHEST: Sounded clear to auscultation. CARDIOVASCULAR: She does have irregularly irregular. ABDOMEN: Bowel sounds positive, nontender. GENITOURINARY AND RECTAL: Deferred. MUSCULOSKELETAL: Functionally, she has been min assist getting up out of bed and has been ambulating a short distance, contact guard assistance. ASSESSMENT: An 86-year-old white female with the following problem list: 1. Medical complexity with generalized debilitation. 2. Orthostatic hypotension. 3. Gait instability with recent fall with a right facial contusion. 4. Recent resection, colon cancer with history of metastatic disease to the lymph nodes and liver. 5. Chronic atrial fibrillation for which she has been on anticoagulation. 6. Recurrent urinary tract infection. PLAN: The patient is admitted for acute in-hospital inpatient rehabilitation. From a post-admission physician evaluation perspective, there are no relevant changes since the preadmission screening. Please see the above review of prior and current medical and functional conditions and comorbidities. Please see the patient's prior and current functional status. As far as risk of complications, she does have multiple medical comorbidities as noted above. Initial plan of care involves the interdisciplinary acute inpatient rehabilitation program with the goal of maximizing the patient's functional independence with mobility, ADLs, transfers and hopefully with improvement of her orthostasis so she can return to the home setting. Measurable functional goals would be for her to become modified independent with transfers, mobility and ADLs when she can return to the home setting. Prognosis is reasonably good. Estimated length of stay is probably fairly short, 7-10 days, potentially a little longer if warranted. [facility] [place] [address] HISTORY AND PHYSICAL Name: LUIS E KUHNSA Room #: 512-P [facility] IN M.R.#: [id number] Admission: 08/03/16 Attend Phys: Stef Cuellar MD Discharge: 08/09/16 Date of : 30 Report #: [id number] Potential barriers to the patient's success in the program would be her multiple medical comorbidities and decreased functional status and orthostasis. The patient meets diagnostic criteria for an acute in-hospital inpatient rehabilitation stay. She meets medical necessity criteria, and we will have the internal medicine and cardiology continue to follow while she is on rehab. She does have the tolerance for an acute in-hospital inpatient rehabilitation stay and has appropriate discharge goals back to the home setting. <ELECTRONICALLY SIGNED> By: Stef Cuellar MD 08/09/16 1825 1106 [id number] Stef Cuellar MD /nt
--- NOTE | ~2016-08-03 | PLAN ---
[facility] [place] [address] REHAB UNIT PLAN OF CARE Name: LUIS E KUHN Room #: 512-P DIS IN M.R.#: [id number] Admission: 08/03/16 Attend Phys: Stef Cuellar MD Discharge: 08/09/16 Date of : 30 Report #: [id number] THIS REPORT FOR: //name// CC: Stef Cuellar Bonilla Angles The patient is seen back today in followup. She is in no distress. Last recorded temp is 97.4, pulse 61, respirations 18, and blood pressure 113/66. No focal calf swelling. The patient has been working in therapies. Transfers are standby assistance. Gait 175 feet front-wheeled walker. She is demonstrating good safety. Working on lower extremity strengthening exercises. In occupational therapy, she is min assist to dress lower extremities, min assist for balance standing at the sink. ASSESSMENT: 1. Medical complexity with generalized debilitation. 2. Orthostatic hypotension. 3. Gait instability with recent fall with right facial contusion. 4. Recent resection, colon cancer with a history of metastatic disease to the lymph nodes and liver. 5. Chronic atrial fibrillation for which she has been on anticoagulation. 6. Recurrent urinary tract infection. PLAN: The overall plan of care is based on the preadmission screen, post-admission physician evaluation and information garnered from therapy assessments. 1. Estimated length of stay should be fairly short, probably 7-10 days, pending progress. 2. Medical prognosis is reasonably good. 3. Anticipated interventions includes the interdisciplinary acute inpatient rehabilitation program with PT, OT working with her, rehab nursing assisting regarding medication management, skin care prophylaxis, bowel, bladder issues and nursing education. Case management will be involved as well as the customer support consultant physicians. 4. Anticipated functional outcomes would be for the patient to hopefully become modified independent ideally using the regular walker, although she indicates her house is too small for a walker. We will need to see how she does. 5. Discharge destination would be back to her house where she lives with her . 6. Expected therapy by discipline includes PT and OT 1-1/2 hours per day, each five days a week throughout the duration of the acute inpatient rehabilitation stay. <ELECTRONICALLY SIGNED> By: Stef Cuellar MD 08/09/16 [id number] Stef Cuellar MD /nt
[~2016-08-03 09:10] MED LIST changes: +CIPRO500 MG PO; +CLARITIN10 M2 PO
[2016-08-03 10:20] VITALS: BP 120/70
[2016-08-03 15:56] VITALS: BP 136/55
[2016-08-03 19:46] VITALS: BP 150/92
[2016-08-04 05:55] VITALS: BP 107/59
[2016-08-04 06:40] LABS: HEMATOCRIT 28.5 % (37.0-47.0); HEMOGLOBIN 9.7 gm/dL (12.0-15.0); MCH 30.6 pg (26.0-34.0); MCHC 34.1 g/dL (28.0-37.0); MCV 89.7 fL (80.0-100.0); RBC 3.17 mil/uL (4.20-5.00); RDW 17.1 % (10.5-14.5); WBC 4.7 thou/uL (4.0-11.0)
[2016-08-04 06:51] LABS: CALCIUM 8.9 mg/dL (8.5-10.1); CREATININE 0.7 mg/dL (0.6-1.0); INR 1.4; POTASSIUM 3.9 mmol/L (3.5-5.1); PROTIME 14.4 Seconds (9.3-11.4)
[2016-08-04 07:49] VITALS: BP 135/81
[2016-08-04 16:00] VITALS: BP 95/57
[2016-08-04 20:14] VITALS: BP 104/69; BP 124/76
[2016-08-05 03:04] VITALS: BP 113/66
[2016-08-05 04:44] LABS: INR 1.5; PROTIME 15.4 Seconds (9.3-11.4)
[2016-08-05 16:36] VITALS: BP 113/65
[2016-08-06 06:00] VITALS: BP 106/66
[2016-08-06 10:02] LABS: INR 1.8; PROTIME 18.7 Seconds (9.3-11.4)
[2016-08-06 16:36] VITALS: BP 111/72
[2016-08-07 04:52] VITALS: BP 123/66
[2016-08-07 07:34] LABS: INR 2.2; PROTIME 22.6 Seconds (9.3-11.4)
[2016-08-07 17:13] VITALS: BP 122/79
[2016-08-08 03:40] LABS: INR 2.3; PROTIME 23.4 Seconds (9.3-11.4)
[2016-08-08 06:00] VITALS: BP 126/89
[2016-08-08 15:41] VITALS: BP 112/60
[2016-08-08 16:32] VITALS: BP 112/60
[2016-08-09 05:54] VITALS: BP 104/60
[2016-08-09 06:30] LABS: INR 2.8
[2016-08-09 10:05] VITALS: BP 112/60
[2016-08-09 10:10] VITALS: BP 112/60
== END 2016-08-09 12:29 | disposition home health service (06) | DRG 948 ==
PROVIDERS: Physical Medicine & Rehabilitation
DX: R53.81 Other malaise (principal); N39.0 Urinary tract infection, site not specified; C18.9 Malignant neoplasm of colon, unspecified; I42.9 Cardiomyopathy, unspecified; I95.1 Orthostatic hypotension; R26.81 Unsteadiness on feet; M06.9 Rheumatoid arthritis, unspecified; K21.9 Gastro-esophageal reflux disease without esophagitis; F41.9 Anxiety disorder, unspecified; G31.84 Mild cognitive impairment of uncertain or unknown etiology; S09.90XA Unspecified injury of head, initial encounter; W18.39XA Other fall on same level, initial encounter; S00.83XA Contusion of other part of head, initial encounter; L30.9 Dermatitis, unspecified; D50.9 Iron deficiency anemia, unspecified; E89.0 Postprocedural hypothyroidism; Z96.659 Presence of unspecified artificial knee joint; Z88.0 Allergy status to penicillin; Z88.2 Allergy status to sulfonamides; Y93.89 Activity, other specified; Y99.8 Other external cause status; Y92.89 Other specified places as the place of occurrence of the external cause; Z90.49 Acquired absence of other specified parts of digestive tract; Z90.10 Acquired absence of unspecified breast and nipple; Z79.01 Long term (current) use of anticoagulants; Z88.8 Allergy status to other drugs, medicaments and biological substances; Z85.3 Personal history of malignant neoplasm of breast
CPT/HCPCS: 10112

== ENCOUNTER 2018-05-31 14:10 | Emergency (ER) | payer OTHER ==
[~2018-05-31] VITALS: Ht 167.6 cm; Wt 74.4 kg
[2018-05-31 14:40] LABS: ABSOLUTE NEUTROPHILS 6.7 thou/uL (1.4-8.2); BASOPHILS 0.3 % (0.0-2.0); EOSINOPHILS 0.1 % (0.0-3.0); HEMATOCRIT 34.2 % (37.0-47.0); HEMOGLOBIN 10.7 gm/dL (12.0-15.0); LYMPHOCYTES 6.2 % (24.0-44.0); MCHC 31.4 g/dL (28.0-37.0); MCV 79.5 fL (80.0-100.0); MONOCYTES 5.9 % (1.0-8.0); PLATELET COUNT 414 thou/uL (150-400); POLYS 87.5 % (36.0-66.0); RDW 19.8 % (10.5-14.5); WBC 7.6 thou/uL (4.0-11.0)
[2018-05-31 14:48] LABS: ANION GAP 12 mmol/L (7-16); BUN 11 mg/dL (7-18); CALCIUM 10.7 mg/dL (8.5-10.1); CHLORIDE 97 mmol/L (98-107); CO2 29 mmol/L (21-32); CREATININE 0.7 mg/dL (0.6-1.0); GLUCOSE 137 mg/dL (74-106); POTASSIUM 3.2 mmol/L (3.5-5.1); SODIUM 138 mmol/L (136-145)
[2018-05-31 14:59] LABS: ALBUMIN 3.6 g/dL (3.4-5.0); DIRECT BILIRUBIN 0.2 mg/dL (<0.1-0.3); LIPASE 124 U/L (73-393); SGOT 22 U/L (15-37); SGPT 17 U/L (30-65); TOTAL BILIRUBIN 0.5 mg/dL (<0.1-1.0); TROPONIN-I <0.06 ng/mL (<0.06)
[2018-05-31 15:09] LABS: ANISOCYTOSIS 1+; HYPOCHROMASIA SLIGHT; MICROCYTES 1+
[2018-05-31 16:14] LABS: URINE BILIRUBIN NEGATIVE (Negative); URINE BLOOD NEGATIVE (Negative); URINE CLARITY CLEAR; URINE COLOR YELLOW; URINE GLUCOSE-RANDOM* NEGATIVE (Negative); URINE KETONES TRACE (Negative); URINE LEUKOCYTES-REFLEX NEGATIVE (Negative); URINE NITRITE-REFLEX NEGATIVE (Negative); URINE PROTEIN (DIPSTICK) NEGATIVE (Negative); URINE SPECIFIC GRAVITY <= 1.005 (1.005-1.035); URINE UROBILINOGEN 0.2 E.U./dl (0.2-1.0)
[2018-05-31 17:31] LABS: INR 4.2; PROTIME 43.2 Seconds (9.3-11.4)
[2018-05-31 19:13] LABS: BE(vivo) 2.3 mmol/L (-2 to +3); HCO3 25.3 mmol/L (22.0-26.0); PCO2 33.6 mmHg (35.0-45.0); PO2 73.1 mmHg (80.0-100.0); pH 7.495 (7.360-7.450); sO2 95.9 % (92.0-98.0)
[2018-05-31] MEDS ORDERED: CARDIZEM CD240 MG PO (19:27)
[2018-05-31] MEDS ORDERED: FOLIC ACID1 MG PO (19:27)
[2018-05-31] MEDS ORDERED: ATENOLOL 100MG100 M2 PO (19:27)
[2018-05-31] MEDS ORDERED: METHOTREXATE 22.5 MG PO (19:28)
[2018-05-31] MEDS ORDERED: HYDROCHLOROTH12.5 M1 PO (19:28)
[2018-05-31] MEDS ORDERED: COLACE100 MG PO (19:29)
[2018-05-31] MEDS ORDERED: CRANBERRY400 M1 PO (19:29)
[2018-05-31] MEDS ORDERED: FLOMAX0.4 MG PO (19:29)
[2018-05-31] MEDS ORDERED: VITAMIN D3400 UNIT PO (19:29)
[2018-05-31] MEDS ORDERED: FLAX SEED OIL1000 MG PO (19:29)
[2018-05-31] MEDS ORDERED: PRESERVISION T1 EACH PO (19:30)
[2018-05-31] MEDS ORDERED: VITAMINC500 PO (19:30)
[2018-05-31] MEDS ORDERED: OMEGA 3 500 SO1 EACH PO (19:30)
[2018-05-31 20:08] VITALS: BP 133/61
--- NOTE | 2018-06-01 08:22 | EKG ---
[place] [address] [facility] [employer] [place] [address] ELECTROCARDIOGRAM REPORT Name: LUIS E KUHN [facility]: [facility] [id number] ������������������ Admission: 05/31/18 ������������������ Attend Phys: Discharge: 05/31/18 ������������������ Date of : 30 Report #: [id number] ����������������������������������������������������������������� [id number] THIS REPORT FOR: //name// [facility] ED Test Date: 2018-05-31 Test Time: 14:24:57 Pat Name: LUIS E KUHN Department: Room: Gender: F [employer] Machine Operator: [facility] : 1930 Requested By: Kalia Elise Order Number: [id number] MD: Felix Tolbert Measurements Intervals Rhodelia Rate: 124 P: MO: QRS: 83 QRSD: 87 T: 45 QT: 395 QTc: 568 Interpretive Statements Atrial fibrillation Low voltage Poor R wave progression Nonspecific ST and T wave abnormality Compared to ECG 07/29/2016 15:02:44 No significant change was found Electronically Signed On 06-01-2018 8:22:31 CDT by Felix Tolbert [email or web address] ��������������������������������������������� <ELECTRONICALLY SIGNED> ���������������������������������������� By: Felix Tolbert MD, [facility] ��������������������������������������������� 06/01/18 0822 1424 142 Felix Tolbert MD, [facility] /EPI
== END 2018-05-31 20:09 | disposition home or self-care (01) ==
LOC: ER 14:10
PROVIDERS: Emergency Medicine
DX: I48.2 Chronic atrial fibrillation (principal); M06.9 Rheumatoid arthritis, unspecified; I10 Essential (primary) hypertension; K59.00 Constipation, unspecified; Z85.3 Personal history of malignant neoplasm of breast; Z85.828 Personal history of other malignant neoplasm of skin; Z96.652 Presence of left artificial knee joint; Z96.651 Presence of right artificial knee joint; Z87.440 Personal history of urinary (tract) infections; Z79.01 Long term (current) use of anticoagulants; Z79.899 Other long term (current) drug therapy; Z88.0 Allergy status to penicillin; Z88.2 Allergy status to sulfonamides; Z88.8 Allergy status to other drugs, medicaments and biological substances